=== PATIENT | male | born 1990 | race Caucasian/White ===

== ENCOUNTER 2018-07-11 16:05 | Emergency (ER) | payer BC ==
[~2018-07-11] VITALS: Ht 172.7 cm; Wt 86.2 kg
[2018-07-11 16:59] LABS: BILIRUBIN,URINE NEGATIVE (NEGATIVE); CLARITY,URINE CLEAR (CLEAR); COLOR,URINE YELLOW (YELLOW); KETONES,URINE NEGATIVE (NEGATIVE); LEUKOCYTE ESTERASE ,URINE NEGATIVE (NEGATIVE); NITRITE,URINE NEGATIVE (NEGATIVE); PROTEIN,URINE DIPSTICK NEGATIVE (NEGATIVE); URINE UROBILINOGEN 0.2 mg/dL (0.2 - 1)
[2018-07-11 17:05] LABS: BASOPHILS # (AUTO) 0.1 (0.0-0.1); BASOPHILS % 0.9 % (0.0-1.0); EOSINOPHILS # (AUTO) 0.3 (0.0-0.4); EOSINOPHILS % 3.2 % (0.0-6.0); HEMATOCRIT 45.8 % (38.2-49.6); HEMOGLOBIN 15.7 g/dL (14.0-18.0); LYMPHOCYTES # (AUTO) 2.7 (1.0-3.2); LYMPHOCYTES % 25.9 % (18.0-39.1); MEAN CORPUSCULAR HEMOGLOBIN 29.5 pg (28-32); MEAN CORPUSCULAR HGB CONC 34.3 g/dL (31-35); MEAN CORPUSCULAR VOLUME 86.1 fL (81-99); MONOCYTES # (AUTO) 0.6 (0.2-0.8); NEUTROPHILS # (AUTO) 6.6 (2.1-6.9); NEUTROPHILS % 63.6 % (38.7-80.0); PLATELET COUNT 291 x10e3/uL (140-360); RED BLOOD COUNT 5.32 x10e6/uL (4.3-5.7); RED CELL DISTRIBUTION WIDTH 12.8 % (11.7-14.4)
[2018-07-11 17:06] LABS: BACTERIA,URINE RARE /HPF; EPITHELIAL CELLS,URINE RARE /LPF; RBC,URINE 0-5 /HPF (0-5); WBC,URINE (MAN) 0-5 /HPF (0-5)
[2018-07-11 17:09] LABS: INR 0.93; PROTHROMBIN TIME 13.3 seconds (11.9-14.5)
[2018-07-11 17:10] LABS: PARTIAL THROMBOPLASTIN TIME 27.2 seconds (23.8-35.5)
[2018-07-11 17:18] LABS: ALANINE AMINOTRANSFERASE 25 IU/L (0-55); ALBUMIN 3.8 g/dL (3.5-5.0); ALBUMIN/GLOBULIN RATIO 1.2 (0.8-2.0); ALKALINE PHOSPHATASE 114 IU/L (40-150); AMYLASE 72 U/L (25-125); ANION GAP 8.2 mmol/L (8-16); BLOOD UREA NITROGEN 11 mg/dL (7-26); BUN/CREATININE RATIO 8 (6-25); CALCIUM 9.7 mg/dL (8.4-10.2); CARBON DIOXIDE 32 mmol/L (22-29); CHLORIDE 102 mmol/L (98-107); CREATINE KINASE 138 IU/L (30-200); EST GLOMERULAR FILTRATION RATE > 60 ML/MIN (60-); GLUCOSE 83 mg/dL (74-118); LIPASE 33 U/L (8-78); POTASSIUM 4.2 mmol/L (3.5-5.1); SODIUM 138 mmol/L (136-145)
[2018-07-11] MEDS ORDERED: ONDANSETRON HCL INJ 2 MG/ML VIAL IV STA (17:33)
[2018-07-11] MEDS ORDERED: KETOROLAC TROMETHAMINE 30 MG/ML VIAL IV STA (17:42)
--- NOTE | 2018-07-11 19:25 | Diagnostic Imaging Report ---
EXAMINATION: CHEST 2 VIEWS INDICATION: Chest pain COMPARISON: None FINDINGS: TUBES and LINES: None. LUNGS: Lungs are well inflated. Lungs are clear. There is no evidence of pneumonia or pulmonary edema. PLEURA: No pleural effusion or pneumothorax. HEART AND MEDIASTINUM: The cardiomediastinal silhouette is unremarkable. BONES AND SOFT TISSUES: No acute osseous lesion. Soft tissues are unremarkable. UPPER ABDOMEN: No free air under the diaphragm. IMPRESSION: No acute radiographic abnormality. Signed by: Dr. Caity Vazquez MD on 07/11/2018 7:22 PM
[2018-07-11] MEDS ORDERED: ULTRAM 50MG50 MG PO (19:49)
[2018-07-11 20:17] VITALS: BP 135/83
--- OUTSIDE RECORDS SUMMARY | 2018-07-20 11:49 | XMS REPORT | Clinical Summary ---
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 Disp. Refills Start End Date Status Date aspirin (ECOTRIN) 81 MG Take 81 mg by mouth Active enteric coated tablet daily. docusate sodium (COLACE) Take 100 mg by mouth 2 Active 100 MG capsule (two) times a day. nystatin (MYCOSTATIN) Take 500,000 Units by Active 100,000 unit/mL mouth 3 (three) times a suspension day. Swish in mouth pravastatin (PRAVACHOL) Take 40 mg by mouth Active 40 MG tablet nightly. acetaminophen 325 mg Take 650 mg by mouth Active capsule every 4 (four) hours as needed. bisacodyl (DULCOLAX) 5 mg Take 10 mg by mouth daily Active EC tablet as needed for constipation. lactulose 10 gram/15 mL Take 30 g by mouth 2 Active (15 mL) solution (two) times a day as needed. HYDROcodone-acetaminophen Take 1 tablet by mouth Active (NORCO) 5-325 mg per every 6 (six) hours as tablet needed for moderate pain. clindamycin (CLEOCIN) 600 Infuse 600 mg into a 01/27/20 Discontin mg/4 mL solution venous catheter every 8 18 ued (eight) hours. valACYclovir (VALTREX) Take 1 tablet (1,000 mg 6 tablet 0 01/27/20 01/30/20 1000 MG tablet total) by mouth 2 (two) 18 18 times a day for 3 days. fluconazole (DIFLUCAN) Take 1 tablet (200 mg 7 tablet 0 01/27/20 02/03/20 200 MG tablet total) by mouth daily for 18 18 7 days. amoxicillin-pot Take 1 tablet by mouth 2 14 tablet 0 01/27/20 02/03/20 clavulanate (AUGMENTIN) (two) times a day for 7 18 18 875-125 mg per tablet days. Active Problems Problem Noted Date Thrush 01/25/2018 Immunocompromised (HCC) 01/25/2018 Sepsis (HCC) 01/24/2018 Oral lesion 01/23/2018 PFO (patent foramen ovale) 01/22/2018 CVA (cerebral vascular accident) (HCC) 01/22/2018 Patent foramen ovale with right to left shunt 01/22/2018 Encounters Date Type Specialty Care Team Description 01/22/2018 Procedure Pass Cardiovascular 01/22/2018 Procedure Pass Cardiovascular 01/22/2018 Procedure Pass Cardiovascular 01/21/2018 [facility] Cardiovascular Cristobal Burns MD Oral lesion (Primary Dx) - Encounter 01/26/2018 after 07/10/2017 Social History Tobacco Use Types Packs/Day Years Used Date Former Smoker Cigarettes 1.5 10 Quit: 01/15/2018 Smokeless Tobacco: Never Used Tobacco Cessation: Counseling Given: Yes Alcohol Use Drinks/Week oz/Week Comments No Sex Assigned at Date Recorded Not on file Last Filed Vital Signs Vital Sign Reading Time Taken Blood Pressure 113/74 01/26/2018 11:26 AM CDT Pulse 60 01/26/2018 11:26 AM CDT Temperature 36.2 C (97.2 F) 01/26/2018 11:26 AM CDT Respiratory Rate 20 01/26/2018 11:26 AM CDT Oxygen Saturation 98% 01/26/2018 11:26 AM CDT Inhaled Oxygen - - Concentration Weight 91.3 kg (201 lb 3 oz) 01/26/2018 5:41 AM CDT Height 172.7 cm (5' 8") 01/25/2018 10:34 AM CDT Body Mass Index 30.59 01/26/2018 5:41 AM CDT Plan of Treatment Health Maintenance Due Date Last Done Comments INFLUENZA VACCINE 05/05/2018 Procedures Procedure Name Priority Date/Time Associated Diagnosis Comments HC COMPLETE BLD COUNT Routine 01/26/2018 Results for this W/AUTO DIFF 5:40 AM CDT procedure are in the results section. ZZESTIMATED GFR Routine 01/26/2018 Results for this 4:00 AM CDT procedure are in the results section. COMPREHENSIVE METABOLIC Routine 01/26/2018 Results for this PANEL 4:00 AM CDT procedure are in the results section. ZZESTIMATED GFR Routine 01/25/2018 Results for this 5:15 AM CDT procedure are in the results section. COMPREHENSIVE METABOLIC Routine 01/25/2018 Results for this PANEL 5:15 AM CDT procedure are in the results section. HC COMPLETE BLD COUNT Routine 01/25/2018 Results for this W/AUTO DIFF 5:15 AM CDT procedure are in the results section. SYPHILIS TREPONEMAL IGG Routine 01/24/2018 Results for this 9:05 PM CDT procedure are in the results section. CYTOMEGALOVIRUS BY PCR STAT 01/24/2018 Results for this 9:05 PM CDT procedure are in the results section. CT MAXILLOFACIAL W Routine 01/24/2018 Results for this CONTRAST 1:18 PM CDT procedure are in the results section. HERPES SIMPLEX VIRUS BY Routine 01/24/2018 Results for this PCR 9:57 AM CDT procedure are in the results section. ENTEROVIRUS BY PCR Routine 01/24/2018 Results for this 5:42 AM CDT procedure are in the results section. HC COMPLETE BLD COUNT Routine 01/24/2018 Results for this W/AUTO DIFF 5:20 AM CDT procedure are in the results section. ECHOVIRUS ANTIBODIES Routine 01/24/2018 Results for this 5:20 AM CDT procedure are in the results section. COXSACKIE A SEROTYPE 9 Routine 01/24/2018 Results for this TITER 5:20 AM CDT procedure are in the results section. ZZESTIMATED GFR Routine 01/24/2018 Results for this 4:00 AM CDT procedure are in the results section. BASIC METABOLIC PANEL Routine 01/24/2018 Results for this 4:00 AM CDT procedure are in the results section. ECG 12-LEAD STAT 01/23/2018 Results for this 3:29 PM CDT procedure are in the results section. HIV QUANTITATIVE BY PCR Routine 01/23/2018 Results for this 12:30 PM CDT procedure are in the results section. LACTIC ACID LEVEL Timed 01/23/2018 Results for this 12:00 PM CDT procedure are in the results section. ECHOCARDIOGRAM 2D Routine 01/23/2018 Results for this COMPLETE W MMODE SPECTRAL 10:36 AM CDT procedure are in the COLOR DOPPLER (52018) results section. VARICELLA ZOSTER VIRUS Routine 01/23/2018 Results for this AB, IGM 10:28 AM CDT procedure are in the results section. HSV TYPE 1/2 COMBINED AB, Routine 01/23/2018 Results for this IGM 7:06 AM CDT procedure are in the results section. RESPIRATORY PATHOGEN Routine 01/23/2018 Results for this PANEL 5:00 AM CDT procedure are in the results section. ZZESTIMATED GFR Routine 01/23/2018 Results for this 4:55 AM CDT procedure are in the results section. BASIC METABOLIC PANEL Routine 01/23/2018 Results for this 4:55 AM CDT procedure are in the results section. HC COMPLETE BLD COUNT Routine 01/23/2018 Results for this W/AUTO DIFF 4:55 AM CDT procedure are in the results section. LACTIC ACID LEVEL Routine 01/23/2018 Results for this 4:55 AM CDT procedure are in the results section. ANIYAH-BEDOYA VIRUS Routine 01/23/2018 Results for this ANTIBODY TEST 4:55 AM CDT procedure are in the results section. CYTOMEGALOVIRUS AB, IGM Routine 01/23/2018 Results for this 4:55 AM CDT procedure are in the results section. HIV 1, 2 ANTIBODY Routine 01/23/2018 Results for this 4:55 AM CDT procedure are in the results section. MRI BRAIN WO CONTRAST Routine 01/22/2018 Results for this 3:22 PM CDT procedure are in the results section. MRA HEAD WO CONTRAST Routine 01/22/2018 Results for this 3:06 PM CDT procedure are in the results section. MRA NECK WO CONTRAST Routine 01/22/2018 Results for this 2:57 PM CDT procedure are in the results section. XR PANOREX Routine 01/22/2018 Results for this 1:37 PM CDT procedure are in the results section. BETA-2 GLYCOPROTEIN 1 Routine 01/22/2018 Results for this ANTIBODY, IGG AND IGM 11:45 AM CDT procedure are in the results section. CARDIOLIPIN ANTIBODIES Routine 01/22/2018 Results for this 11:45 AM CDT procedure are in the results section. LUPUS ANTICOAGULANT PANEL Routine 01/22/2018 Results for this 11:45 AM CDT procedure are in the results section. FUNCTIONAL PROTEIN S Routine 01/22/2018 Results for this 11:45 AM CDT procedure are in the results section. FUNCTIONAL PROTEIN C Routine 01/22/2018 Results for this 11:45 AM CDT procedure are in the results section. ANTITHROMBIN III LEVEL Routine 01/22/2018 Results for this 11:45 AM CDT procedure are in the results section. C-REACTIVE PROTEIN Routine 01/22/2018 Results for this 11:45 AM CDT procedure are in the results section. FACTOR VIII ASSAY Routine 01/22/2018 Results for this 11:45 AM CDT procedure are in the results section. PROTHROMBIN MUTATION, Routine 01/22/2018 Results for this FACTOR II, BY PCR 11:45 AM CDT procedure are in the results section. FACTOR V LEIDEN BY PCR Routine 01/22/2018 Results for this 11:45 AM CDT procedure are in the results section. ZZESTIMATED GFR Routine 01/21/2018 Results for this 10:00 PM CDT procedure are in the results section. PROTHROMBIN TIME WITH INR Routine 01/21/2018 Results for this 10:00 PM CDT procedure are in the results section. PARTIAL THROMBOPLASTIN Routine 01/21/2018 Results for this TIME (PTT) 10:00 PM CDT procedure are in the results section. COMPREHENSIVE METABOLIC Routine 01/21/2018 Results for this PANEL 10:00 PM CDT procedure are in the results section. HC COMPLETE BLD COUNT Routine 01/21/2018 Results for this W/AUTO DIFF 10:00 PM CDT procedure are in the results section. XR CHEST 1 VW PORTABLE Routine 01/21/2018 Results for this 9:58 PM CDT procedure are in the results section. BLOOD CULTURE, AEROBIC & Routine 01/21/2018 Results for this ANAEROBIC 9:45 PM CDT procedure are in the results section. BLOOD CULTURE, AEROBIC & Routine 01/21/2018 Results for this ANAEROBIC 9:45 PM CDT procedure are in the results section. URINALYSIS, AUTOMATED Routine 01/21/2018 Results for this WITH MICROSCOPY 9:15 PM CDT procedure are in the results section. after 07/10/2017 Results * CBC with platelet and differential (01/26/2018 5:40 AM) Only the most recent of 5 results within the time period is included. WBC 9.34 4.50 - 11.00 k/uL [facility] DEPARTMENT OF PATHOLOGY AND GENOMIC MEDICINE RBC 4.94 4.40 - 6.00 m/uL [facility] DEPARTMENT OF PATHOLOGY AND GENOMIC MEDICINE HGB 14.8 14.0 - 18.0 g/dL [facility] DEPARTMENT OF PATHOLOGY AND GENOMIC MEDICINE HCT 42.3 41.0 - 51.0 % [facility] DEPARTMENT OF PATHOLOGY AND GENOMIC MEDICINE MCV 85.6 82.0 - 100.0 fL [facility] DEPARTMENT OF PATHOLOGY AND GENOMIC MEDICINE MCH 30.0 27.0 - 34.0 pg [facility] DEPARTMENT OF PATHOLOGY AND GENOMIC MEDICINE MCHC 35.0 31.0 - 37.0 g/dL [facility] DEPARTMENT OF PATHOLOGY AND GENOMIC MEDICINE RDW - SD 37.4 37.0 - 55.0 fL [facility] DEPARTMENT OF PATHOLOGY AND GENOMIC MEDICINE MPV 9.4 8.8 - 13.2 fL [facility] DEPARTMENT OF PATHOLOGY AND GENOMIC MEDICINE Platelet count 270 150 - 400 k/uL [facility] DEPARTMENT OF PATHOLOGY AND GENOMIC MEDICINE Nucleated RBC 0.00 /100 WBC [facility] DEPARTMENT OF PATHOLOGY AND GENOMIC MEDICINE Neutrophils 54.5 39.0 - 69.0 % [facility] DEPARTMENT OF PATHOLOGY AND GENOMIC MEDICINE Lymphocytes 30.9 25.0 - 45.0 % [facility] DEPARTMENT OF PATHOLOGY AND GENOMIC MEDICINE Monocytes 7.8 0.0 - 10.0 % [facility] DEPARTMENT OF PATHOLOGY AND GENOMIC MEDICINE Eosinophils 5.4 (H) 0.0 - 5.0 % [facility] DEPARTMENT OF PATHOLOGY AND GENOMIC MEDICINE Basophils 0.9 0.0 - 1.0 % [facility] DEPARTMENT OF PATHOLOGY AND GENOMIC MEDICINE Immature granulocytes 0.5Comment: "Immature 0.0 - 1.0 % [facility] DEPARTMENT OF granulocytes" (promyelocytes, PATHOLOGY AND myelocytes, metamyelocytes) GENOMIC MEDICINE Specimen Blood Performing Organization Address City/State/[facility] Phone Number [facility] DEPARTMENT OF [address] [place] [address] PATHOLOGY AND GENOMIC MEDICINE * Estimated GFR (01/26/2018 4:00 AM) Only the most recent of 5 results within the time period is included. GFR Non Af Amer 80 mL/min/1.73 m2 [facility] DEPARTMENT OF PATHOLOGY AND GENOMIC MEDICINE GFR Af Amer >90 mL/min/1.73 m2 [facility] DEPARTMENT OF Comment: PATHOLOGY AND Chronic kidney disease: <60 GENOMIC MEDICINE mL/min/1.73m2 Kidney failure: <15 mL/min/1.73m2 The estimated GFR is calculated from the IDMS-traceable Modification of Diet in Renal Disease Equation. The accuracy of the calculation is poor when the creatinine is normal. Calculated values >90 mL/min/1.73m2 are not reported. This equation has not been validated in children (<18 years), women, the elderly (>70 years), or ethnic groups other than Caucasians and Americans. Specimen Plasma specimen Performing Organization Address City/State/Zipcode Phone Number [address] [address] PATHOLOGY AND GENOMIC MEDICINE * Comprehensive metabolic panel (01/26/2018 4:00 AM) Only the most recent of 3 results within the time period is included. Sodium 136 135 - 148 mEq/L [facility] DEPARTMENT OF PATHOLOGY AND GENOMIC MEDICINE Potassium 4.2 3.5 - 5.0 mEq/L [facility] DEPARTMENT OF PATHOLOGY AND GENOMIC MEDICINE Chloride 97 (L) 98 - 112 mEq/L [facility] DEPARTMENT OF PATHOLOGY AND GENOMIC MEDICINE CO2 27 24 - 31 mEq/L [facility] DEPARTMENT OF PATHOLOGY AND GENOMIC MEDICINE Anion gap 12 7 - 15 mEq/L [facility] DEPARTMENT OF Comment: PATHOLOGY AND Starting from January GENOMIC MEDICINE , anion gap calculation no longer incorporates potassium. Please note the change. BUN 10 6 - 20 mg/dL [facility] DEPARTMENT OF PATHOLOGY AND GENOMIC MEDICINE Creatinine 1.1 0.7 - 1.2 mg/dL [facility] DEPARTMENT OF PATHOLOGY AND GENOMIC MEDICINE Glucose 94 65 - 99 mg/dL [facility] DEPARTMENT OF PATHOLOGY AND GENOMIC MEDICINE Calcium 9.6 8.3 - 10.2 mg/dL [facility] DEPARTMENT OF PATHOLOGY AND GENOMIC MEDICINE Protein 7.5 6.3 - 8.3 g/dL [facility] DEPARTMENT OF Comment: PATHOLOGY AND [facility] GENOMIC MEDICINE 4.6-7.0 g/dL 1 week 4.4-7.6 g/dL 7 months-1year 5.1-7.3 g/dL 1-2 years5.6-7 .5 g/dL >3 years6.0-8 .0 g/dL 18-150 6.3-8.3 g/dL Albumin 3.2 (L) 3.5 - 5.0 g/dL [facility] DEPARTMENT OF PATHOLOGY AND GENOMIC MEDICINE A/G ratio 0.7 0.7 - 3.8 [facility] DEPARTMENT OF PATHOLOGY AND GENOMIC MEDICINE Alkaline phosphatase 109 40 - 129 U/L [facility] DEPARTMENT OF PATHOLOGY AND GENOMIC MEDICINE AST 50 10 - 50 U/L [facility] DEPARTMENT OF PATHOLOGY AND GENOMIC MEDICINE ALT 56 (H) 5 - 50 U/L [facility] DEPARTMENT OF PATHOLOGY AND GENOMIC MEDICINE Total bilirubin 0.4 0.0 - 1.2 mg/dL [facility] DEPARTMENT OF PATHOLOGY AND GENOMIC MEDICINE Specimen Plasma specimen Performing Organization Address City/State/Zipcode Phone Number [facility] [address] [place] [address] PATHOLOGY AND GENOMIC MEDICINE * Syphilis treponemal IgG (01/24/2018 9:05 PM) Syphilis treponemal IgG Non-reactiveComment: Non-reactive [facility] DEPARTMENT OF Non-reactive: No serological PATHOLOGY AND evidence of Syphilis infection GENOMIC MEDICINE Specimen Serum Performing Organization Address City/[facility]/Zipcode Phone Number [facility] DEPARTMENT OF [address] [place] [phone] PATHOLOGY AND GENOMIC MEDICINE * Cytomegalovirus by PCR (01/24/2018 9:05 PM) Cytomegalovirus by PCR Not-Detected Not-Detected IU/mL [facility] DEPARTMENT OF PATHOLOGY AND GENOMIC MEDICINE Cytomegalovirus by PCR See link below for PDF Lab [facility] DEPARTMENT OF ReportComment: Case Number: PATHOLOGY AND [id number] GENOMIC MEDICINE Performing Organization Address City/[facility]/Zipcode Phone Number [facility] DEPARTMENT OF [address] [place] [phone] PATHOLOGY AND GENOMIC MEDICINE * CT Maxillofacial W Contrast (01/24/2018 1:18 PM) Narrative Performed At EXAMINATION:CT MAXILLOFACIAL W CONTRAST RADIANT CLINICAL HISTORY:R o dental abscess COMPARISON:None. FINDINGS: Axial images were obtained after intravenous contrast infusion with sagittal and coronal image reconstructions. CT scans are performed using radiation dose reduction techniques. Technical factors are evaluated and adjusted to ensure appropriate moderation of exposure. Automated dose management technology is applied to adjust radiation exposure while achieving a highly diagnostic quality image.. There is periapical bone resorption surrounding the left mandibular first molar consistent with periapical inflammatory changes with cystic bone resorption. There is no definite soft tissue abscess. There is reactive left submandibular lymphadenopathy. There is no extension into the floor of the mouth and there is no evidence of airway impingement. IMPRESSION: Periapical cystic inflammatory changes surrounding the root canals of the left first mandibular molar without soft tissue abscess. Reactive/inflammatory left submandibular lymphadenopathy. [facility]-[id number] Procedure Note Interface, Radiology Results Incoming - 01/24/2018 1:24 PM CDT EXAMINATION: CT MAXILLOFACIAL W CONTRAST CLINICAL HISTORY: R o dental abscess COMPARISON: None. FINDINGS: Axial images were obtained after intravenous contrast infusion with sagittal and coronal image reconstructions. CT scans are performed using radiation dose reduction techniques. Technical factors are evaluated and adjusted to ensure appropriate moderation of exposure. Automated dose management technology is applied to adjust radiation exposure while achieving a highly diagnostic quality image.. There is periapical bone resorption surrounding the left mandibular first molar consistent with periapical inflammatory changes with cystic bone resorption. There is no definite soft tissue abscess. There is reactive left submandibular lymphadenopathy. There is no extension into the floor of the mouth and there is no evidence of airway impingement. IMPRESSION: Periapical cystic inflammatory changes surrounding the root canals of the left first mandibular molar without soft tissue abscess. Reactive/inflammatory left submandibular lymphadenopathy. [facility]-[id number] Performing Organization Address City/[facility]/[place] [address] * Herpes simplex virus by PCR (01/24/2018 9:57 AM) Herpes virus, PCR Not-Detected Not-Detected [facility] DEPARTMENT OF PATHOLOGY AND GENOMIC MEDICINE Herpes virus, PCR See link below for PDF Lab [facility] DEPARTMENT OF ReportComment: Case Number: PATHOLOGY AND [id number] GENOMIC MEDICINE Performing Organization Address [facility] Phone Number [address] [address] PATHOLOGY AND GENOMIC MEDICINE * Enterovirus by PCR (01/24/2018 5:42 AM) Enterovirus PCR Not-Detected Not-Detected [facility] DEPARTMENT OF PATHOLOGY AND GENOMIC MEDICINE Enterovirus PCR See link below for PDF Lab [facility] DEPARTMENT OF ReportComment: Case Number: PATHOLOGY AND [id number] GENOMIC MEDICINE Performing Organization Address [facility] Phone Number [facility] DEPARTMENT [address] [address] PATHOLOGY AND GENOMIC MEDICINE * Echovirus antibodies (01/24/2018 5:20 AM) Echovirus Ab type 6 <1:10 <1:10 [facility] Echovirus Ab type 7 1:320 (H) <1:10 [facility] Echovirus Ab type 9 1:10 <1:10 [facility] Echovirus Ab type 11 1:20 <1:10 [facility] Echovirus Ab type 30 1:40 <1:10 [facility] Comment: INTERPRETIVE INFORMATION: Echovirus Antibodies Single positive antibody titers of greater than or equal to 1:80 may indicate past or current infection. Sero- conversion or an increase in titers between acute and convalescent sera of at least fourfold is considered strong evidence of current or recent infection. Performed by [employer], [address] [place] [address],[place] [id number] [email or web address], Santi Conti MD - Lab. Director Specimen Serum Performing Organization Address City/[facility] Mexicocode Phone Number [facility] [address] [place] [address] * Coxsackie A serotype 9 titer (01/24/2018 5:20 AM) Coxsackie A sero 9 1:16 (H) <1:8 [facility] Comment: INTERPRETIVE INFORMATION: Coxsackie A Serotype 9 Titer Single positive antibody titers of greater than 1:32 may indicate past or current infection. Seroconversion or an increase in titers between acute and convalescent sera of at least fourfold is considered strong evidence of current or recent infection. Performed by [employer], [address] [id number] [email or web address], Santi Conti MD - Lab. Director Specimen Serum Performing Organization Address [facility] Phone Number [facility] [address] [place] [address] * Basic metabolic panel (01/24/2018 4:00 AM) Only the most recent of 2 results within the time period is included. Sodium 133 (L) 135 - 148 mEq/L [facility] DEPARTMENT OF PATHOLOGY AND GENOMIC MEDICINE Potassium 4.5 3.5 - 5.0 mEq/L [facility] DEPARTMENT OF PATHOLOGY AND GENOMIC MEDICINE Chloride 96 (L) 98 - 112 mEq/L [facility] DEPARTMENT OF PATHOLOGY AND GENOMIC MEDICINE CO2 25 24 - 31 mEq/L [facility] DEPARTMENT OF PATHOLOGY AND GENOMIC MEDICINE Anion gap 12 7 - 15 mEq/L [facility] DEPARTMENT OF Comment: PATHOLOGY AND Starting from January [facility] , anion gap calculation no longer incorporates potassium. Please note the change. BUN 10 6 - 20 mg/dL [facility] DEPARTMENT OF PATHOLOGY AND GENOMIC MEDICINE Creatinine 1.4 (H) 0.7 - 1.2 mg/dL [facility] DEPARTMENT OF PATHOLOGY AND GENOMIC MEDICINE Glucose 87 65 - 99 mg/dL [facility] DEPARTMENT OF PATHOLOGY AND GENOMIC MEDICINE Calcium 8.9 8.3 - 10.2 mg/dL [facility] DEPARTMENT OF PATHOLOGY AND GENOMIC MEDICINE Specimen Plasma specimen Performing Organization Address City/[facility]/Zipcode Phone Number [address] [address] PATHOLOGY AND GENOMIC MEDICINE * ECG 12 lead (01/23/2018 3:29 PM) Ventricular rate 90 [facility] MUSE Atrial rate 90 [facility] MUSE [place] interval 132 [facility] MUSE QRSD interval 90 [facility] MUSE QT interval 330 [facility] MUSE QTC interval 403 [facility] MUSE P axis 1 29 [facility] MUSE QRS axis 1 -5 [facility] MUSE T wave axis 20 [facility] MUSE EKG impression Normal sinus rhythm-Normal [facility] MUSE ECG-No previous ECGs available- Performing Organization Address [facility] Phone Number [facility] MUSE [address] [place] [address] * HIV quantitative by PCR (01/23/2018 12:30 PM) HIV quantitative, PCR Not-Detected Not-Detected copies/mL [facility] DEPARTMENT OF PATHOLOGY AND GENOMIC MEDICINE HIV quantitative, PCR See link below for PDF Lab [facility] DEPARTMENT OF ReportComment: Case Number: PATHOLOGY AND [id number] GENOMIC MEDICINE Specimen Blood Performing Organization Address [facility] Phone Number [facility] DEPARTMENT OF [address] [place] [address] PATHOLOGY AND GENOMIC MEDICINE * Lactic acid level (01/23/2018 12:00 PM) Only the most recent of 2 results within the time period is included. Lactic acid 1.4 0.5 - 2.2 mmol/L [facility] DEPARTMENT OF PATHOLOGY AND GENOMIC MEDICINE Specimen Blood Performing Organization Address [facility] Phone Number [facility] DEPARTMENT OF [address] [place] [address] PATHOLOGY AND GENOMIC MEDICINE * Echocardiogram complete w contrast and 3D if needed (01/23/2018 10:36 AM) Narrative Performed At [facility] Echocardiography Report [address] [place] [address] Pat.Name:FER MONDRAGON.ID:[id number] St.Date: 01/23/2018 Refer.MD:CRISTOBAL BURNS MD Exam Time: 9:58:00 AMStudy Type:Routine Echo Height:70inWeight:205lb BSA: 2.11 m2 DOBAge:1990,27Y Sex: MALEBP:131/65 HR:107 bpm Sonogrphr: KESHA Tabares, [facility] Pat. Stat.:Inpatient Room:D906 Study Status:Final Echo Event ID:[id number] Order ID:[id number] Reason for Study:Knonw PFO, Symptoms or conditions potentialy related to suspected cardiac etiology including but not limited to chest pain, shortness of breath, palpitations, TIA, stroke, or peripheral embolic event Procedures:2D Echo, Colorflow Doppler, Strain Race:C SUMMARY: Saline study was not requested, but color doppler did notshow L to R shunting FINDINGS: LV: LV size is normal. LV EF is normal. Overall wall motion is normal.Estimated EF is 65-69% RV: RV size is normal. RV systolic function is normal. LA: LA size is normal. RA: RA size is normal. AO: Aortic root diameter is normal. MCKAYLA: No pericardial effusion. AV: No structural AV abnormalities noted. MV: No structural MV abnormalities noted. PV: No structural PV abnormalities noted. TV: No structural TV abnormalities noted. Mild tricuspid regurgitation Bennett: Normal diastolic function. Other:Estimated PA systolic pressure is 26 mmHg, assuming a mean RAPof 5 mmHg. MEASUREMENTS: 2D Parasternal [place] LVOT 2.2 cmAo An2.2 cm LVIDd4.6 cmIndex2.2 cm/m Ao Rtd 3.1 cm Index1.5 cm/m LVIDs2.4 cm LV Udvo547.5 g(122-174) LV%fs 48.4 % LVM Index 90.3 g/m2 IVSd 1.1 cmRWT0.5 LVPWd1.2 cm LA Sng Plane LA Area 17.4 cm2(8.8-23.4) LA Vol44.4 ml Index21 ml/m LA LngAx 5.6 cm RA Sng Plane RA Area 14.2 cm2(8.3-19.5) RA Vol39.9 ml Index18.9 ml/m RA LngAx 4.2 cm DOPPLER LVOT Stroke Vol LVOT 2.2 cmLVOT CO7.7 l/min LVOT TVI19.8 cmLVOT CI3.6 l/m/m2 LVOT Tm245 msecHR 102 bpm LVOT SV 75.4 ml Signed 01/23/2018 01:35 PM Sudha Roach M.D. Procedure Note Interface, Radiology Results In - 01/23/2018 1:35 PM CDT Echocardiography Report [address] [place] [address] Pat.Name: FER MONDRAGON Pat.ID: [id number] .Date: 01/23/2018 Refer.MD: CRISTOBAL BURNS MD Exam Time: 9:58:00 AM Study Type:Routine Echo Height: 70in Weight: 205lb BSA: 2.11 m2 Age: 8 1990,27Y Sex: MALE BP: 131/65 HR: 107 bpm Sonogrphr: KESHA Tabares, [facility] Pat. Stat.:Inpatient Room: [facility] Study Status:Final Echo Event ID:[id number] Order ID: [id number] Reason for Study:Knonw PFO, Symptoms or conditions potentialy related to suspected cardiac etiology including but not limited to chest pain, shortness of breath, palpitations, TIA, stroke, or peripheral embolic event Procedures:2D Echo, Colorflow Doppler, Strain Race: C SUMMARY: Saline study was not requested, but color doppler did not show L to R shunting FINDINGS: LV: LV size is normal. LV EF is normal. Overall wall motion is normal. Estimated EF is 65-69% RV: RV size is normal. RV systolic function is normal. LA: LA size is normal. RA: RA size is normal. AO: Aortic root diameter is normal. MCKAYLA: No pericardial effusion. AV: No structural AV abnormalities noted. MV: No structural MV abnormalities noted. PV: No structural PV abnormalities noted. TV: No structural TV abnormalities noted. Mild tricuspid regurgitation Bennett: Normal diastolic function. Other: Estimated PA systolic pressure is 26 mmHg, assuming a mean RAP of 5 mmHg. MEASUREMENTS: 2D Parasternal Long [place] LVOT 2.2 cm Ao An 2.2 cm LVIDd 4.6 cm Index 2.2 cm/m Ao Rtd 3.1 cm Index 1.5 cm/m LVIDs 2.4 cm LV Mass 190.5 g (122-174) LV%fs 48.4 % LVM Index 90.3 g/m2 IVSd 1.1 cm RWT 0.5 LVPWd 1.2 cm LA Sng Plane LA Area 17.4 cm2 (8.8-23.4) LA Vol 44.4 ml Index 21 ml/m LA LngAx 5.6 cm RA Sng Plane RA Area 14.2 cm2 (8.3-19.5) RA Vol 39.9 ml Index 18.9 ml/m RA LngAx 4.2 cm DOPPLER LVOT Stroke Vol LVOT 2.2 cm LVOT CO 7.7 l/min LVOT TVI 19.8 cm LVOT CI 3.6 l/m/m2 LVOT Tm 245 msec HR 102 bpm LVOT SV 75.4 ml Signed 01/23/2018 01:35 PM Sudha Roach M.D. Performing Organization Address City/[facility]/Zipcode Phone Number [facility] [address] [place] [address] * Varicella zoster virus Ab, IgM (01/23/2018 10:28 AM) VZV IgM 0.00 <=0.90 [facility] Comment: Specimen is hemolyzed. Results may be adversely affected. INTERPRETIVE INFORMATION: Varicella-Zoster Virus Antibody, IgM 0.90 ISR or less ........ Negative - No significant leve l of detectable vari angelic-zoster virus IgM antibody. 0.91-1.09 ISR ........... Equivocal - Repeat testing in 10-1 4 days may be helpful. 1.10 ISR or greater ..... Positive - Significant level of detectable varicella-zoster viru s IgM antibody. Indicative of current or recent infection. Martines miranda, low levels of IgM anti bodies may occasionally pers ist for more than 12 months post -infection or immunization. Performed by [facility], [address] [place], [place] [id number] [email or web address], Santi Conti MD - Lab. Director Specimen Serum Performing Organization Address [facility] Phone Number [facility] [address] [place] [address] * HSV type 1/2 combined Ab, IgM (01/23/2018 7:06 AM) HSV 1/2 combined Ab, IgM SEE NOTE [facility] Comment: Herpes Simplex Virus Type 1 and/or 2 Antibodies, IgM by GEOFF [facility] test code [id number] HSV 1 and/or 2 Abs, IgM by GEOFF 0.42 IV (Ref Interval: <=0.89) Specimen is hemolyzed. Results may be adversely affected. INTERPRETIVE INFORMATION: Herpes Simplex Virus Type 1 and/or 2 Antibodies, IgM by GEOFF 0.89 IV or Less .......... Not Detected 0.90 - 1.09 IV ........... Indeterminate- Repeat testing in 10-14 days may be helpful. 1.10 IV or Greater ....... Detected-IgM antibody to HSV detected, which may indicate a current or recent infection. However, low levels of IgM antibodies may occasionally persist for more than 12 months post-infection. Test performed by: [facility] [address] [place], [id number] Specimen Serum Performing Organization Address [facility] Phone Number [facility] [address] [place] [address] * Respiratory pathogen panel (01/23/2018 5:00 AM) Respiratory pathogen Negative for all pathogens [facility] DEPARTMENT OF panel tested: PATHOLOGY AND Negative for Adenovirus GENOMIC MEDICINE Negative for Coronavirus HKU1 Negative for Coronavirus NL63 Negative for Coronavirus 229E Negative for Coronavirus OC43 Negative for Human Metapneumovirus Negative for Rhinovirus/Enterovirus Negative for Influenza A Negative for Influenza A/H1 Negative for Influenza A/H3 Negative for Influenza A/H1-2009 Negative for Influenza B Negative for Parainfluenza Virus 1 Negative for Parainfluenza Virus 2 Negative for Parainfluenza Virus 3 Negative for Parainfluenza Virus 4 Negative for Respiratory Syncytial Virus Negative for Bordetella pertussis Negative for Chlamydophila pneumoniae Negative for Mycoplasma pneumoniae This real-time PCR assay detects the presence of nucleic acids (RNA or DNA) for the respiratory pathogens listed. A result of "Not-detected" does not exclude the possibility of the presence of one or more pathogens at concentrations less than the detectable limits of the assay. Comment: Specimen Information Specimen Source: Nares Specimen Site: Right Specimen Nares - Right Performing Organization Address City/[facility] Phone Number [facility] DEPARTMENT OF [address] [place] [address] PATHOLOGY AND GENOMIC MEDICINE * Aniyah-Bedoya virus antibody test (01/23/2018 4:55 AM) EBV Ab to viral capsid POSITIVE (A) Negative [facility] DEPARTMENT OF Ag, IgG PATHOLOGY AND GENOMIC MEDICINE EBV Ab to viral capsid Negative Negative [facility] DEPARTMENT OF Ag, IgM PATHOLOGY AND GENOMIC MEDICINE EBV Ab to nuclear Ag, IgG POSITIVE (A) Negative [facility] DEPARTMENT OF PATHOLOGY AND GENOMIC MEDICINE EBV Ab to early (D) Ag, Negative Negative [facility] DEPARTMENT OF IgG Comment: PATHOLOGY AND Interpretive Information: GENOMIC MEDICINE Infection StatusVCA_IgG No Previous_ Acute + Recent + Past + Reactivation + Infection StatusVCA_IgM No Previous_ Acute + Recent +/- Past - Reactivation +/- Infection Status EA No Previous_ Acute +/- Recent +/- Past - Reactivation + Infection Status EBNA No Previous_ Acute - Recent +/- Past + Reactivation + Specimen Serum Performing Organization Address City/[facility] Phone Number [facility] DEPARTMENT OF [address] [place] [address] PATHOLOGY AND [facility] * Cytomegalovirus Ab, IgM (01/23/2018 4:55 AM) Cytomegalovirus Ab, IgM NegativeComment: Negative: CMV Negative [facility] DEPARTMENT OF IgM antibodies were not PATHOLOGY AND detected. GENOMIC MEDICINE Specimen Serum Performing Organization Address [facility] Phone Number [facility] [place] [address] PATHOLOGY AND [facility] * HIV 1, 2 antibody (01/23/2018 4:55 AM) HIV 1, 2 antibody Non-reactive Non-reactive [facility] DEPARTMENT OF Comment: PATHOLOGY AND Starting from January 01 2016, GENOMIC MEDICINE 4th generation HIV screening and confirmation assays are in use at [facility], consistent with the CDC-recommended algorithm. The screening test detects antibodies to HIV-1, HIV-2 and the p24 antigen. Positive screening results will be automatically reflexed to a HIV-1/HIV-2 differentiation assay. Indeterminant HIV-1 results will be further automatically reflexed to a nucleic acid test for detection of acute infection. Western blot will no longer be performed as a confirmation test. For a quick reference guide on the testing algorithm, please refer to: http://stacks.cdc.gov/view/cdc /95400. Specimen Blood Performing Organization Address [facility] Phone Number [facility] DEPARTMENT OF [address] [place] [address] PATHOLOGY AND [facility] * MRI Brain Wo Contrast (01/22/2018 3:22 PM) Narrative Performed At EXAMINATION:[facility]IN [facility] CLINICAL HISTORY:STROKE COMPARISON:None. TECHNIQUE: Standard noncontrast brain MRI. FINDINGS: The brain is normal in signal and configuration with no evidence of acute infarction, hemorrhage, mass lesion, or midline shift. Ventricles, sulci, and cisterns are normal in size and configuration. There is no extra-axial fluid collection. Flow voids of the major intracranial vessels are intact. Visualized paranasal sinuses and mastoid air cells are clear. Bones, orbits, and soft tissues are unremarkable. IMPRESSION: Unremarkable brain MRI with no evidence of acute infarction, hemorrhage, or mass lesion. [facility]-[id number] Procedure Note [facility], Radiology Results Incoming - 01/22/2018 4:12 PM CDT EXAMINATION: MRI BRAIN WO CONTRAST CLINICAL HISTORY: STROKE COMPARISON: None. TECHNIQUE: Standard noncontrast brain MRI. FINDINGS: The brain is normal in signal and configuration with no evidence of acute infarction, hemorrhage, mass lesion, or midline shift. Ventricles, sulci, and cisterns are normal in size and configuration. There is no extra-axial fluid collection. Flow voids of the major intracranial vessels are intact. Visualized paranasal sinuses and mastoid air cells are clear. Bones, orbits, and soft tissues are unremarkable. IMPRESSION: Unremarkable brain MRI with no evidence of acute infarction, hemorrhage, or mass lesion. [facility]-[id number] Performing Organization Address City/State/Zipcode Phone Number [facility] [address] [place] [address] * MRA Head Wo Contrast (01/22/2018 3:06 PM) Narrative Performed At [facility] EXAMINATION:MRA HEAD WO CONTRAST CLINICAL HISTORY:STROKE COMPARISON:Concurrent brain MRI on 01/22/2018. TECHNIQUE: Head MRA using 3D vbuj-sa-rvjxqf technique with multiplanar MIP reconstruction were obtained. FINDINGS: There is normal flow signal with no significant stenosis or occlusion along bilateral intracranial ICAs, ACAs, and MCAs. The anterior communicating artery complex is unremarkable. There is normal flow signal with no significant stenosis or occlusion along bilateral vertebral arteries, basilar artery, cerebellar arteries, and drosophere operator. The vertebral arteries are codominant. The posterior communicating arteries are small and not well-visualized. There is no evidence of cerebral aneurysm in the proximal washoe of [place] within limits of MRA technique. IMPRESSION: Unremarkable head MRA with no significant stenosis or occlusion in the proximal washoe of [place]. [facility]-[id number] Procedure Note [facility], Radiology Results Incoming - 01/22/2018 4:14 PM CDT EXAMINATION: MRA HEAD WO CONTRAST CLINICAL HISTORY: STROKE COMPARISON: Concurrent brain MRI on 01/22/2018. TECHNIQUE: Head MRA using 3D bskl-yf-muhcek technique with multiplanar MIP reconstruction were obtained. FINDINGS: There is normal flow signal with no significant stenosis or occlusion along bilateral intracranial ICAs, ACAs, and MCAs. The anterior communicating artery complex is unremarkable. There is normal flow signal with no significant stenosis or occlusion along bilateral vertebral arteries, basilar artery, cerebellar arteries, and drosophere operator. The vertebral arteries are codominant. The posterior communicating arteries are small and not well-visualized. There is no evidence of cerebral aneurysm in the proximal washoe of [place] within limits of MRA technique. IMPRESSION: Unremarkable head MRA with no significant stenosis or occlusion in the proximal washoe of [place]. [facility]-[id number] Performing Organization Address City/State/Zipcode Phone Number [facility] [address] [place] [address] * MRA Neck Wo Contrast (01/22/2018 2:57 PM) Narrative Performed At EXAMINATION: MRA NECK WO CONTRAST [facility] CLINICAL HISTORY: STROKE COMPARISON:None TECHNIQUE: 2-D and 3-D Tbik-gs-grlvug MRA images of the cervical vessels were obtained with multiplanar and 3-D reconstructive algorithms. FINDINGS: The common carotid arteries are patent. The carotid bifurcations, internal carotid arteries and external carotid arteries are patent. There is 0% stenosis of the internal carotid arteries by NASCET criteria. The vertebral arteries are patent.The vertebral arteries are roughly codominant.There is no evidence of stenosis or dissection. IMPRESSION: Unremarkable MRA of the neck with no significant stenosis by NASCET criteria. [facility]-[id number] Procedure Note Interface, Radiology Results Incoming - 01/22/2018 4:14 PM CDT EXAMINATION: MRA NECK WO CONTRAST CLINICAL HISTORY: STROKE COMPARISON: None TECHNIQUE: 2-D and 3-D [id number]-[id number]-ogmfib MRA images of the cervical vessels were obtained with multiplanar and 3-D reconstructive algorithms. FINDINGS: The common carotid arteries are patent. The carotid bifurcations, internal carotid arteries and external carotid arteries are patent. There is 0% stenosis of the internal carotid arteries by NASCET criteria. The vertebral arteries are patent. The vertebral arteries are roughly codominant. There is no evidence of stenosis or dissection. IMPRESSION: Unremarkable MRA of the neck with no significant stenosis by NASCET criteria. [facility]-[id number] Performing Organization Address City/[facility] Phone Number [facility] [address] [place] [address] * XR Panorex (01/22/2018 1:37 PM) Narrative Performed At EXAMINATION:XR PANOREX [facility] CLINICAL HISTORY:Abscess, dental abscess and swelling COMPARISON:None. IMPRESSION: There are root canal changes involving the left mandibular first molar with small periapical lucency, cannot exclude periapical abscess. There is also questionable thin lucency in the left mandibular second and third molar regions. Recommend dedicated dental imaging for further evaluation. [facility]-[id number] Procedure Note Hm Interface, Radiology Results Incoming - 01/22/2018 1:47 PM CDT EXAMINATION: XR PANOREX CLINICAL HISTORY: Abscess, dental abscess and swelling COMPARISON: None. IMPRESSION: There are root canal changes involving the left mandibular first molar with small periapical lucency, cannot exclude periapical abscess. There is also questionable thin lucency in the left mandibular second and third molar regions. Recommend dedicated dental imaging for further evaluation. [facility]-[id number] Performing Organization Address [facility] Phone Number [facility] [address] [place] [phone] * Prothrombin mutation, factor II, by PCR (01/22/2018 11:45 AM) Prothrombin gene mutation Normal Normal [facility] DEPARTMENT OF PATHOLOGY AND GENOMIC MEDICINE Prothrombin gene mutation See link below for PDF Lab [facility] DEPARTMENT OF ReportComment: Case Number: PATHOLOGY AND [id number] GENOMIC MEDICINE Specimen Blood Performing Organization Address [facility] Phone Number [facility] DEPARTMENT OF [address] [place] [phone] PATHOLOGY AND GENOMIC MEDICINE * Beta-2 glycoprotein 1 antibody, IgG and IgM (01/22/2018 11:45 AM) Beta-2 glycoprotein 1 <9.4 0.0 - 20.0 [facility] DEPARTMENT OF antibody, IgG Comment: PATHOLOGY AND Negative=<20.0 [facility] GENOMIC MEDICINE Positive >20.0 [facility] Beta-2 glycoprotein 1 <9.4 0.0 - 20.0 [facility] DEPARTMENT OF antibody, IgM Comment: PATHOLOGY AND Negative=<20.0 [facility] GENOMIC MEDICINE Positive >20.0 [facility] Specimen Blood Performing Organization Address [facility] Phone Number [facility] DEPARTMENT OF [address] [place] [address] PATHOLOGY AND GENOMIC MEDICINE * Functional protein S (01/22/2018 11:45 AM) Functional protein S 113 74 - 160 % [facility] DEPARTMENT OF Comment: PATHOLOGY AND Functional Protein S GENOMIC MEDICINE performed.If result is decreased Total and Free Protein S Antigen will be performed. Specimen Blood Performing Organization Address City/[facility] Phone Number [facility] DEPARTMENT OF [address] [place] [address] PATHOLOGY AND GENOMIC MEDICINE * Functional protein C (01/22/2018 11:45 AM) Functional protein C 85 70 - 165 % [facility] DEPARTMENT OF PATHOLOGY AND GENOMIC MEDICINE Specimen Blood Performing Organization Address City/[facility] Phone Number [address] [address] PATHOLOGY AND GENOMIC MEDICINE * Lupus anticoagulant panel (01/22/2018 11:45 AM) Prothrombin time 14.4 12.0 - 15.0 sec [facility] DEPARTMENT OF PATHOLOGY AND GENOMIC MEDICINE INR 1.1 [facility] DEPARTMENT OF Comment: PATHOLOGY AND The International Normalized [facility] Ratio (INR) is a therapeutic monitoring tool for patients who are stable on oral anticoagulant therapy. An INR of 2.0-3.0 is suggested for deep vein thrombosis/pulmonary embolism. PTT 37.8 (H) 23.0 - 36.0 sec [facility] DEPARTMENT OF Comment: PATHOLOGY AND PTT therapeutic range for [facility] unfractionated heparin is 61.0-112.0 seconds which corresponds to Anti-Xa 0.3-0.7 U/ml. PTT lupus anticoagulant 38.0 27.0 - 38.0 sec [facility] DEPARTMENT OF Comment: PATHOLOGY AND Lupus anticoagulant (LA) panel [facility] consists of PT, PTT, PTT-LA, and DRVVT. If the PTT-LA is above the normal range, the hexagonal phospholipid will be performed. If the DRVVT is above the normal range, the DRVVC confirmatory test will be performed. A normal result for both the DRVVT and the PTT-LA means the patient is negative for lupus anticoagulant. The patient is considered positive for lupus anticoagulant if either the Ratio SCR/CONF or the hexagonal phospholipid is high (positive) on two occassions at least six weeks apart. Clinical confirmation is also required for diagnosis. DRVVT 41.6 29.0 - 46.0 sec [facility] DEPARTMENT OF PATHOLOGY AND GENOMIC MEDICINE Specimen Blood Performing Organization Address City/[facility] [facility] Phone Number [facility] [place] [address] PATHOLOGY AND GENOMIC MEDICINE * Cardiolipin antibodies (01/22/2018 11:45 AM) Cardiolipin IgG 1 0 - 14 GPL [facility] DEPARTMENT OF Comment: PATHOLOGY AND Negative=<15 GENOMIC MEDICINE GPL Indeterminate=15-20 GPL Positive=>20 GPL Cardiolipin IgM 4 0 - 12 MPL [facility] DEPARTMENT OF Comment: PATHOLOGY AND Negative=<13 GENOMIC MEDICINE MPL Indeterminate=13-20 MPL Positive=>20 MPL Specimen Blood Performing Organization Address City/[facility] Phone [facility] [place] [address] PATHOLOGY AND GENOMIC MEDICINE * Factor V leiden by PCR (01/22/2018 11:45 AM) Factor V Leiden Normal [facility] DEPARTMENT OF PATHOLOGY AND GENOMIC MEDICINE Factor V Leiden See link below for PDF Lab [facility] DEPARTMENT OF ReportComment: Case Number: PATHOLOGY AND [id number] GENOMIC MEDICINE Specimen Blood Performing Organization Address [facility] Phone Number [facility] [place] [address] PATHOLOGY AND GENOMIC MEDICINE * Antithrombin III level (01/22/2018 11:45 AM) Antithrombin III 103 80 - 130 % [facility] DEPARTMENT OF PATHOLOGY AND GENOMIC MEDICINE Specimen Blood Performing Organization Address [facility] Phone Number [facility] [place] [address] PATHOLOGY AND [facility] MEDICINE * Factor VIII assay (01/22/2018 11:45 AM) Factor VIII activity 111 60 - 150 % [facility] DEPARTMENT OF PATHOLOGY AND GENOMIC MEDICINE Specimen Blood Performing Organization Address [facility] Phone Number [facility] [place] [address] PATHOLOGY AND [facility] MEDICINE * C-reactive protein (01/22/2018 11:45 AM) CRP 4.62 (H) 0.00 - 0.50 mg/dL [facility] DEPARTMENT OF PATHOLOGY AND GENOMIC MEDICINE Specimen Plasma specimen Performing Organization Address [facility] Phone Number [facility] [place] [address] PATHOLOGY AND GENOMIC MEDICINE * Partial thromboplastin time, activated (01/21/2018 10:00 PM) PTT 34.5 23.0 - 36.0 sec [facility] DEPARTMENT OF Comment: PATHOLOGY AND PTT therapeutic range for [facility] MEDICINE unfractionated heparin is 61.0-112.0 seconds which corresponds to Anti-Xa 0.3-0.7 U/ml. Specimen Blood Performing Organization Address City/[facility]/Zipcode Phone Number [facility] DEPARTMENT OF [address] [place] [address] PATHOLOGY AND GENOMIC MEDICINE * Prothrombin time with INR (01/21/2018 10:00 PM) Prothrombin time 14.1 12.0 - 15.0 sec [facility] DEPARTMENT OF PATHOLOGY AND GENOMIC MEDICINE INR 1.1 [facility] DEPARTMENT OF Comment: PATHOLOGY AND The International Normalized GENOMIC MEDICINE Ratio (INR) is a therapeutic monitoring tool for patients who are stable on oral anticoagulant therapy. An INR of 2.0-3.0 is suggested for deep vein thrombosis/pulmonary embolism. Specimen Blood Performing Organization Address [facility] Phone Number [facility] DEPARTMENT OF [address] [place] [address] PATHOLOGY AND GENOMIC MEDICINE * XR Chest 1 Vw Portable (01/21/2018 9:58 PM) Narrative Performed At Examination:XR CHEST 1 V[facility] Clinical History:TIA Comparison: None. Technique: Single frontal view of the chest is obtained. Findings: The lungs are free of infiltrate. The heart size is normal. No pleural effusion is seen. Impression: No active cardiopulmonary disease identified. [facility]-[id number] Procedure Note Interface, Radiology Results Incoming - 01/21/2018 11:32 PM CDT Examination: XR CHEST 1 VW PORTABLE Clinical History: TIA Comparison: None. Technique: Single frontal view of the chest is obtained. Findings: The lungs are free of infiltrate. The heart size is normal. No pleural effusion is seen. Impression: No active cardiopulmonary disease identified. [facility]-[id number] Performing Organization Address City/[facility]/Zipcode Phone Number [facility] [address] [place] [address] * Blood culture, aerobic & anaerobic (01/21/2018 9:45 PM) Only the most recent of 2 results within the time period is included. Blood culture isolate No growth after 5 days of [facility] DEPARTMENT OF incubation. PATHOLOGY AND Comment: GENOMIC MEDICINE Specimen Information Specimen Source: Blood Specimen Site: Arm, left Specimen Blood - Arm, left Performing Organization Address City/State/Zipcode Phone Number [facility] DEPARTMENT OF [address] [place] [address] PATHOLOGY AND GENOMIC MEDICINE * Urinalysis, automated with microscopy (01/21/2018 9:15 PM) Color, UA My [facility] DEPARTMENT OF PATHOLOGY AND GENOMIC MEDICINE Appearance, UA Clear [facility] DEPARTMENT OF PATHOLOGY AND GENOMIC MEDICINE Specific gravity, UA 1.026 1.001 - 1.035 [facility] DEPARTMENT OF PATHOLOGY AND GENOMIC MEDICINE pH, UA 6.0 5.0 - 8.5 [facility] DEPARTMENT OF PATHOLOGY AND GENOMIC MEDICINE Protein, UA Negative Negative [facility] DEPARTMENT OF PATHOLOGY AND GENOMIC MEDICINE Glucose, UA Negative Negative [facility] DEPARTMENT OF PATHOLOGY AND GENOMIC MEDICINE Ketones, UA Negative Negative [facility] DEPARTMENT OF PATHOLOGY AND GENOMIC MEDICINE Bilirubin, UA Negative Negative [facility] DEPARTMENT OF PATHOLOGY AND GENOMIC MEDICINE Blood, UA Small (A) Negative [facility] DEPARTMENT OF PATHOLOGY AND GENOMIC MEDICINE Nitrite, UA Negative Negative [facility] DEPARTMENT OF PATHOLOGY AND GENOMIC MEDICINE Urobilinogen, UA 4.0 (A) <2.0 [facility] DEPARTMENT OF PATHOLOGY AND GENOMIC MEDICINE Leukocyte esterase, UA Negative Negative [facility] DEPARTMENT OF PATHOLOGY AND GENOMIC MEDICINE Epithelial cells, UA <1 /HPF [facility] DEPARTMENT OF PATHOLOGY AND GENOMIC MEDICINE WBC, UA 1 0 - 1 /HPF [facility] DEPARTMENT OF PATHOLOGY AND GENOMIC MEDICINE RBC, UA 3 0 - 5 /HPF [facility] DEPARTMENT OF PATHOLOGY AND GENOMIC MEDICINE Bacteria, UA Few None seen [facility] DEPARTMENT OF PATHOLOGY AND GENOMIC MEDICINE Yeast, UA None seen [facility] DEPARTMENT OF PATHOLOGY AND GENOMIC MEDICINE Yeast with pseudohyphae, None seen [facility] DEPARTMENT OF PATHOLOGY AND GENOMIC MEDICINE Specimen Urine Performing Organization Address City/[facility]/Zipcode Phone Number [address] [address] PATHOLOGY AND GENOMIC MEDICINE after 07/10/2017 Insurance Payer Benefit Subscriber ID Type Phone Address Plan / Group BCBS BCBS xxxxxxxxxxxx PPO CHOICE PPO/[place] [address]
--- OUTSIDE RECORDS SUMMARY | 2018-07-20 11:49 | XMS REPORT ---
Author [facility] Address Unknown Phone Unavailable Care Team Providers Care Byproducts Extractor Name Role Phone BLAIR, Ingrid MATA Unavailable Unavailable CLARI URBINA Unavailable Unavailable Payers Payer Name Policy Type Policy Number Effective Date Expiration Date Problems This patient has no known problems. Allergies, Adverse Reactions, Alerts Allergy Name Allergy Type Status Severity Reaction(s) Onset Date Inactive Date Treating Clinician Comments No Known Allergies DA Active U 2018-02-28 00:00:00 Medications This patient has no known medications. Results Test Description Test Time Test Comments Text Results Atomic Results Result Comments CHEST 2 VIEWS 2018-07-11 19:21:00 [place] [id number] Patient Name: SHO MONDRAGON MR #: [id number] : 1990 Age/Sex: 28/M Req #: [id number] Adm Physician: Ordered by: CAREN PELAYO PACKAGING LINE OPERATOR Report #: [id number] Location: ER Room/Bed: Procedure: [id number] DX/CHEST 2 VIEWS Exam Date: 07/11/18 Exam Time: 1822 REPORT STATUS: Signed EXAMINATION: CHEST 2 VIEWS INDICATION: Chest pain COMPARISON: None FINDINGS: TUBES and LINES: None. LUNGS: Lungs are well inflated. Lungs are clear. There is no evidence of pneumonia or pulmonary edema. PLEURA: No pleural effusion or pneumothorax. HEART AND MEDIASTINUM: The cardiomediastinal silhouette is unremarkable. BONES AND SOFT TISSUES: No acute osseous lesion. Soft tissues are unremarkable. UPPER ABDOMEN: No free air under the diaphragm. IMPRESSION: No acute radiographic abnormality. Signed by: Dr. Sun Schaefer MD on 07/11/2018 7:22 PM Dictated By: SUN SCHAEFER MD 21 Transcribed By: MING on 07/11/181921 COPY TO: CAREN PELAYO PACKAGING LINE OPERATOR XR HAND MIN 3VWS 2018-04-29 20:13:52 Procedure: XR HAND MIN 3VWSExam Date: April 29, 2018 20 00Ordering Provider: JENNA Fontanezinical Indication: hand injComparison: NoneFindings: No fracture or dislocation. Mild scattered degenerative changes. Noosseous erosion.Mild soft tissue swelling. No radiopaque foreign body.Impression: Mild soft tissue swelling.This final report was electronically signed by Dr Foster Mcallister MD 04/29/2018 8:07PMDictated By: JOANIE MCALLISTERINDate: 04/29/2018 20:13
--- OUTSIDE RECORDS SUMMARY | 2018-07-20 11:49 | XMS REPORT | Continuity of Care Document ---
Author Author [facility] Address [address] [place] [address] ;ext= Care Team Providers Care Crisis Worker Name Role Phone CLARI URBINA Admphys CLARI URBINA Attphys NONE, NONE PCP Unavailable Hospital Admission Diagnosis Code Admission Diagnosis Date [id number] Hand pain Social History Element Description Code Description Smoking Status Code System Start Date End Date Smoking Status [id number] Never smoker SNOMED-CT Problems * No data in the system Medications SNOMED CT Description [id number] Drug Treatment Unknown Allergies * No Known Allergies Results Radiology Results Order: [id number] XR HAND MIN 3VWS* Exam Completion Date:04/29/2018 19:52 Procedure: XR HAND MIN 3VWS Exam Date: April 29, 2018 20 00 Ordering Pro vider: JENNA Fontanezinical Indication: hand injComparison: NoneFindings: N o fracture or dislocation. Mild scattered degenerative changes. Noosseous erosio n.Mild soft tissue swelling. No radiopaque foreign body.Impression: Mild soft t issue swelling.This final report was electronically signed by Dr Foster Mcallister MD 04/29/2018 8:07PMDictated By: JOANIE MCALLISTERINDate: 04/29/2018 20:13 Vital Signs Vitals Value Date Body Temperature 99 F 04/29/2018 Height 68 in 04/29/2018 Weight Measured 196.21 lbs 04/29/2018 BSA (Body Surface Area) 2.99695 04/29/2018 BMI (Body Mass Index) 30 04/29/2018 Respiratory Rate 17 04/29/2018 O2% BldC Oximetry 96 04/29/2018 BP Systolic 111 mmHg 04/29/2018 BP Diastolic 83 mmHg 04/29/2018 Plan of Care * No data in the system Procedures Code Code System Procedure Name Target Site Date of Procedure XR HAND MIN 3VWS 04/29/2018 20:13 Encounters Date Code Diagnosis Status (ICD10) - [id number] CONTUSION LEFT HAND INITIAL ENC Active Immunizations * No data in the system Functional Status * No data in the system Hospital Discharge Instructions * Discharge Instructions 2* Discharge Diagnosis* left hand contusion * Important Information* Consult your physician or return to the Emergency Department immediately if worse, if not better as expected, or if any problems arise. * Follow Up Care* Yes * Important Information* Please understand that you have received care only on an emergency basis. If your condition does not improve, you should call your personal physician for follow-up care. If you do not have a physician, you may call the referred physician listed. * If you have questions about your care or these discharge instructions, you may call the Emergency Department. Please take your discharge paperwork with you to any follow-up appointments. * Follow Up Care* Patient To Schedule * Follow-Up With:* Primary Care Physician * Activity Level* As tolerated, unrestricted * Diet* Regular * Prescriptions Given Via:* N/A * Patient Teaching* Patient education provided
== END 2018-07-11 20:23 | disposition home or self-care (01) ==
LOC: ER 16:05
DX: R07.89 Other chest pain (principal); Z86.73 Personal history of transient ischemic attack (TIA), and cerebral infarction without residual deficits; F17.210 Nicotine dependence, cigarettes, uncomplicated
CPT/HCPCS: 36415; 71046; 80053; 81001; 82150; 82550; 82553; 83605; 83690; 83735; 84484; 85025; 85610; 85730; 87040; 87086; 93005; 99284; J1885; J2405

== ENCOUNTER 2018-11-30 13:55 | Observation (INO) | payer BC ==
[~2018-11-30] VITALS: Ht 172.7 cm; Wt 97.5 kg
[~2018-11-30 13:55] MED LIST: ULTRAM 50MG50 MG PO
--- OUTSIDE RECORDS SUMMARY | 2018-11-30 13:58 | XMS REPORT | Clinical Summary ---
Author Author [facility] Organization [facility] Address Unknown Phone Unavailable Care Team Providers Care Leather Tanner Name Role Phone Asked, No Pcp PCP Unavailable Allergies No Known Allergies Medications End Date Status Medication Sig Dispensed Refills Start Date Active aspirin (ECOTRIN) 81 MG Take 81 mg by 0 enteric coated tablet mouth daily. Active docusate sodium (COLACE) Take 100 mg 0 100 MG capsule by mouth 2 (two) times a day. Active nystatin (MYCOSTATIN) Take 500,000 0 100,000 unit/mL Units by suspension mouth 3 (three) times a day. Swish in mouth Active pravastatin (PRAVACHOL) Take 40 mg by 0 40 MG tablet mouth nightly. Active acetaminophen 325 mg Take 650 mg 0 capsule by mouth every 4 (four) hours as needed. Active bisacodyl (DULCOLAX) 5 mg Take 10 mg by 0 EC tablet mouth daily as needed for constipation. Active lactulose 10 gram/15 mL Take 30 g by 0 (15 mL) solution mouth 2 (two) times a day as needed. Active HYDROcodone-acetaminophen Take 1 tablet 0 (NORCO) 5-325 mg per by mouth tablet every 6 (six) hours as needed for moderate pain. 01/26/2018 Discontinued clindamycin (CLEOCIN) 600 Infuse 600 mg 0 mg/4 mL solution into a venous catheter every 8 (eight) hours. 01/29/2018 valACYclovir (VALTREX) Take 1 tablet 6 tablet 0 1000 MG tablet (1,000 mg 8 total) by mouth 2 (two) times a day for 3 days. 02/02/2018 fluconazole (DIFLUCAN) Take 1 tablet 7 tablet 0 200 MG tablet (200 mg 8 total) by mouth daily for 7 days. 02/02/2018 amoxicillin-pot Take 1 tablet 14 tablet 0 clavulanate (AUGMENTIN) by mouth 2 8 875-125 mg per tablet (two) times a day for 7 days. Active Problems Problem Noted Date Thrush 01/25/2018 Immunocompromised 01/25/2018 Sepsis 01/24/2018 Oral lesion 01/23/2018 PFO (patent foramen ovale) 01/22/2018 CVA (cerebral vascular accident) 01/22/2018 Patent foramen ovale with right to left shunt 01/22/2018 Encounters Care Team Description Date Type Specialty Jeyson Burns MD Oral lesion (Primary Dx) 01/21/2018 Hospital Cardiovascular - Encounter 01/26/2018 after 11/29/2017 Social History Date Tobacco Use Types Packs/Day Years Used Quit: 01/15/2018 Former Smoker Cigarettes 1.5 10 Smokeless Tobacco: Never Used Tobacco Cessation: Counseling Given: Yes Alcohol Use Drinks/Week oz/Week Comments No Sex Assigned at Date Recorded Not on file Industry Job Start Date Occupation Not on file Not on file Not on file Travel End Travel History Travel Start No recent travel history available. Last Filed Vital Signs Time Taken Vital Sign Reading 01/26/2018 11:26 AM CDT Blood Pressure 113/74 01/26/2018 11:26 AM CDT Pulse 60 01/26/2018 11:26 AM CDT Temperature 36.2 C (97.2 F) 01/26/2018 11:26 AM CDT Respiratory Rate 20 01/26/2018 11:26 AM CDT Oxygen Saturation 98% - Inhaled Oxygen - Concentration 01/26/2018 5:41 AM CDT Weight 91.3 kg (201 lb 3 oz) 01/25/2018 10:34 AM CDT Height 172.7 cm (5' 8") 01/26/2018 5:41 AM CDT Body Mass Index 30.59 Plan of Treatment Health Maintenance Due Date Last Done Comments INFLUENZA VACCINE 05/05/2018 Procedures Comments Procedure Name Priority Date/Time Associated Diagnosis HC COMPLETE BLD COUNT Routine 01/26/2018 W/AUTO DIFF 5:40 AM CDT ZZESTIMATED GFR Routine 01/26/2018 4:00 AM CDT COMPREHENSIVE METABOLIC Routine 01/26/2018 PANEL 4:00 AM CDT ZZESTIMATED GFR Routine 01/25/2018 5:15 AM CDT COMPREHENSIVE METABOLIC Routine 01/25/2018 PANEL 5:15 AM CDT HC COMPLETE BLD COUNT Routine 01/25/2018 W/AUTO DIFF 5:15 AM CDT SYPHILIS TREPONEMAL IGG Routine 01/24/2018 9:05 PM CDT CYTOMEGALOVIRUS BY PCR STAT 01/24/2018 9:[address] MAXILLOFACIAL W Routine 01/24/2018 CONTRAST 1:18 PM CDT HERPES SIMPLEX VIRUS BY Routine 01/24/2018 PCR 9:57 AM CDT ENTEROVIRUS BY PCR Routine 01/24/2018 5:42 AM CDT HC COMPLETE BLD COUNT Routine 01/24/2018 W/AUTO DIFF 5:20 AM CDT ECHOVIRUS ANTIBODIES Routine 01/24/2018 5:20 AM CDT COXSACKIE A SEROTYPE 9 Routine 01/24/2018 TITER 5:20 AM CDT ZZESTIMATED GFR Routine 01/24/2018 4:00 AM CDT BASIC METABOLIC PANEL Routine 01/24/2018 4:00 AM CDT ECG 12-LEAD STAT 01/23/2018 3:29 PM CDT HIV QUANTITATIVE BY PCR Routine 01/23/2018 12:30 PM CDT LACTIC ACID LEVEL Timed 01/23/2018 12:00 PM CDT ECHOCARDIOGRAM 2D Routine 01/23/2018 COMPLETE W MMODE SPECTRAL 10:36 AM CDT COLOR DOPPLER ([id number]) VARICELLA ZOSTER VIRUS Routine 01/23/2018 AB, IGM 10:28 AM CDT HSV TYPE 1/2 COMBINED AB, Routine 01/23/2018 IGM 7:06 AM CDT RESPIRATORY PATHOGEN Routine 01/23/2018 PANEL 5:00 AM CDT ZZESTIMATED GFR Routine 01/23/2018 4:55 AM CDT BASIC METABOLIC PANEL Routine 01/23/2018 4:55 AM CDT HC COMPLETE BLD COUNT Routine 01/23/2018 W/AUTO DIFF 4:55 AM CDT LACTIC ACID LEVEL Routine 01/23/2018 4:55 AM CDT ROCIO-BEDOYA VIRUS Routine 01/23/2018 ANTIBODY TEST 4:55 AM CDT CYTOMEGALOVIRUS AB, IGM Routine 01/23/2018 4:55 AM CDT HIV 1, 2 ANTIBODY Routine 01/23/2018 4:55 AM CDT MRI BRAIN WO CONTRAST Routine 01/22/2018 3:22 PM CDT MRA HEAD WO CONTRAST Routine 01/22/2018 3:06 PM CDT MRA NECK WO CONTRAST Routine 01/22/2018 2:57 PM CDT XR PANOREX Routine 01/22/2018 1:37 PM CDT BETA-2 GLYCOPROTEIN 1 Routine 01/22/2018 ANTIBODY, IGG AND IGM 11:45 AM CDT CARDIOLIPIN ANTIBODIES Routine 01/22/2018 11:45 AM CDT LUPUS ANTICOAGULANT PANEL Routine 01/22/2018 11:45 AM CDT FUNCTIONAL PROTEIN S Routine 01/22/2018 11:45 AM CDT FUNCTIONAL PROTEIN C Routine 01/22/2018 11:45 AM CDT ANTITHROMBIN III LEVEL Routine 01/22/2018 11:45 AM CDT C-REACTIVE PROTEIN Routine 01/22/2018 11:45 AM CDT FACTOR VIII ASSAY Routine 01/22/2018 11:45 AM CDT PROTHROMBIN MUTATION, Routine 01/22/2018 FACTOR II, BY PCR 11:45 AM CDT FACTOR V LEIDEN BY PCR Routine 01/22/2018 11:45 AM CDT ZZESTIMATED GFR Routine 01/21/2018 10:00 PM CDT PROTHROMBIN TIME WITH INR Routine 01/21/2018 10:00 PM CDT PARTIAL THROMBOPLASTIN Routine 01/21/2018 TIME (PTT) 10:00 PM CDT COMPREHENSIVE METABOLIC Routine 01/21/2018 PANEL 10:00 PM CDT HC COMPLETE BLD COUNT Routine 01/21/2018 W/AUTO DIFF 10:00 PM CDT XR CHEST 1 VW PORTABLE Routine 01/21/2018 9:58 PM CDT BLOOD CULTURE, AEROBIC & Routine 01/21/2018 ANAEROBIC 9:45 PM CDT BLOOD CULTURE, AEROBIC & Routine 01/21/2018 ANAEROBIC 9:45 PM CDT URINALYSIS, AUTOMATED Routine 01/21/2018 WITH MICROSCOPY 9:15 PM CDT after 11/29/2017 Results * CBC with platelet and differential (01/26/2018 5:40 AM CDT) Only the most recent of 5 results within the time period is included. WBC 9.34 4.50 - 11.00 k/uL [facility] DEPARTMENT OF PATHOLOGY AND GENOMIC MEDICINE RBC 4.94 4.40 - 6.00 m/uL [facility] DEPARTMENT OF PATHOLOGY AND GENOMIC MEDICINE HGB 14.8 14.0 - 18.0 g/dL [facility] DEPARTMENT OF PATHOLOGY AND GENOMIC MEDICINE HCT 42.3 41.0 - 51.0 % [facility] DEPARTMENT OF PATHOLOGY AND GENOMIC MEDICINE MCV 85.6 82.0 - 100.0 fL [facility] DEPARTMENT OF PATHOLOGY AND GENOMIC MEDICINE MCH 30.0 27.0 - 34.0 pg [facility] DEPARTMENT OF PATHOLOGY AND GENOMIC MEDICINE MCHC 35.0 31.0 - 37.0 g/dL [facility] DEPARTMENT OF PATHOLOGY AND GENOMIC MEDICINE RDW - SD 37.4 37.0 - 55.0 fL [facility] DEPARTMENT OF PATHOLOGY AND GENOMIC MEDICINE MPV 9.4 8.8 - 13.2 fL [facility] DEPARTMENT OF PATHOLOGY AND GENOMIC MEDICINE Platelet count 270 150 - 400 k/uL [facility] DEPARTMENT OF PATHOLOGY AND GENOMIC MEDICINE Nucleated RBC 0.00 /100 WBC [facility] DEPARTMENT OF PATHOLOGY AND GENOMIC MEDICINE Neutrophils 54.5 39.0 - 69.0 % [facility] DEPARTMENT OF PATHOLOGY AND GENOMIC MEDICINE Lymphocytes 30.9 25.0 - 45.0 % [facility] DEPARTMENT OF PATHOLOGY AND GENOMIC MEDICINE Monocytes 7.8 0.0 - 10.0 % [facility] DEPARTMENT OF PATHOLOGY AND GENOMIC MEDICINE Eosinophils 5.4 (H) 0.0 - 5.0 % [facility] DEPARTMENT OF PATHOLOGY AND GENOMIC MEDICINE Basophils 0.9 0.0 - 1.0 % [facility] DEPARTMENT OF PATHOLOGY AND GENOMIC MEDICINE Immature granulocytes 0.5Comment: "Immature 0.0 - 1.0 % [facility] DEPARTMENT OF granulocytes" (promyelocytes, PATHOLOGY AND myelocytes, metamyelocytes) GENOMIC MEDICINE Specimen Blood Performing Organization Address City/State/Zipcode Phone Number [facility] DEPARTMENT OF [address] [place] [phone] PATHOLOGY AND GENOMIC MEDICINE * Estimated GFR (01/26/2018 4:00 AM CDT) Only the most recent of 5 results within the time period is included. GFR Non Af Amer 80 mL/min/1.73 m2 [facility] DEPARTMENT OF PATHOLOGY AND GENOMIC MEDICINE GFR Af Amer >90 mL/min/1.73 m2 [facility] DEPARTMENT OF Comment: PATHOLOGY AND Chronic kidney [...] specimen Performing Organization Address City/State/Zipcode Phone Number [address] [address] PATHOLOGY AND GENOMIC MEDICINE * Comprehensive metabolic panel (01/26/2018 4:00 AM CDT) Only the most recent of 3 results within the time period is included. Sodium 136 135 - 148 mEq/L [facility] DEPARTMENT OF PATHOLOGY AND GENOMIC MEDICINE Potassium 4.2 3.5 - 5.0 mEq/L [facility] DEPARTMENT OF PATHOLOGY AND GENOMIC MEDICINE Chloride 97 (L) 98 - 112 mEq/L [facility] DEPARTMENT OF PATHOLOGY AND GENOMIC MEDICINE CO2 27 24 - 31 mEq/L [facility] DEPARTMENT OF PATHOLOGY AND GENOMIC MEDICINE Anion gap 12 7 - 15 mEq/L [facility] DEPARTMENT OF Comment: PATHOLOGY AND Starting from January GENOMIC MEDICINE , anion gap calculation no longer incorporates potassium. Please note the change. BUN 10 6 - 20 mg/dL [facility] DEPARTMENT OF PATHOLOGY AND GENOMIC MEDICINE Creatinine 1.1 0.7 - 1.2 mg/dL [facility] DEPARTMENT OF PATHOLOGY AND GENOMIC MEDICINE Glucose 94 65 - 99 mg/dL [facility] DEPARTMENT OF PATHOLOGY AND GENOMIC MEDICINE Calcium 9.6 8.3 - 10.2 mg/dL [facility] DEPARTMENT OF PATHOLOGY AND GENOMIC MEDICINE Protein 7.5 6.3 - 8.3 g/dL [facility] DEPARTMENT OF Comment: PATHOLOGY AND [place] GENOMIC MEDICINE 4.6-7.0 g/dL 1 week 4.4-7.6 g/dL 7 months-1year 5.1-7.3 g/dL 1-2 years5.6-7 .5 g/dL >3 years6.0-8 .0 g/dL 18-150 6.3-8.3 g/dL Albumin 3.2 (L) 3.5 - 5.0 g/dL [facility] DEPARTMENT OF PATHOLOGY AND GENOMIC MEDICINE A/G ratio 0.7 0.7 - 3.8 [facility] DEPARTMENT OF PATHOLOGY AND GENOMIC MEDICINE Alkaline phosphatase 109 40 - 129 U/L [facility] DEPARTMENT OF PATHOLOGY AND GENOMIC MEDICINE AST 50 10 - 50 U/L [facility] DEPARTMENT OF PATHOLOGY AND GENOMIC MEDICINE ALT 56 (H) 5 - 50 U/L [facility] DEPARTMENT OF PATHOLOGY AND GENOMIC MEDICINE Total bilirubin 0.4 0.0 - 1.2 mg/dL [facility] DEPARTMENT OF PATHOLOGY AND GENOMIC MEDICINE Specimen Plasma specimen Performing Organization Address City/State/Zipcode Phone Number [facility] [address] [place] [address] PATHOLOGY AND GENOMIC MEDICINE * Syphilis treponemal IgG (01/24/2018 9:05 PM CDT) Syphilis treponemal IgG Non-reactiveComment: Non-reactive [facility] DEPARTMENT OF Non-reactive: No serological PATHOLOGY AND evidence of Syphilis infection GENOMIC [facility] Specimen Serum Performing Organization Address City/[facility] Facility[facility] Phone Number [facility] DEPARTMENT OF [address] [place] [address] PATHOLOGY AND GENOMIC MEDICINE * Cytomegalovirus by PCR (01/24/2018 9:05 PM CDT) Cytomegalovirus by PCR Not-Detected Not-Detected IU/mL [facility] DEPARTMENT OF PATHOLOGY AND GENOMIC MEDICINE Cytomegalovirus by PCR See link below for PDF Lab [facility] DEPARTMENT OF ReportComment: Case Number: PATHOLOGY AND [id number] GENOMIC MEDICINE Performing Organization Address City/[facility] Facility[facility] Phone Number [facility] DEPARTMENT OF [address] [place] [address] PATHOLOGY AND GENOMIC MEDICINE * CT Maxillofacial W Contrast (01/24/2018 1:18 PM CDT) Narrative Performed At EXAMINATION:CT MAXILLOFACIAL W CONTRAST [...] soft tissue abscess. Reactive/inflammatory left submandibular lymphadenopathy. [facility]-[id number] Procedure Note Interface, Radiology Results Incoming - [...] soft tissue abscess. Reactive/inflammatory left submandibular lymphadenopathy. [facility]-[id number] Performing Organization Address City/[facility]/[place] [address] * Herpes simplex virus by PCR (01/24/2018 9:57 AM CDT) Herpes virus, PCR Not-Detected Not-Detected [facility] DEPARTMENT OF PATHOLOGY AND GENOMIC MEDICINE Herpes virus, PCR See link below for PDF Lab [facility] DEPARTMENT OF ReportComment: Case Number: PATHOLOGY AND [id number] GENOMIC MEDICINE Performing Organization Address [facility] [place] [address] PATHOLOGY AND GENOMIC MEDICINE * Enterovirus by PCR (01/24/2018 5:42 AM CDT) Enterovirus PCR Not-Detected Not-Detected [facility] DEPARTMENT OF PATHOLOGY AND GENOMIC MEDICINE Enterovirus PCR See link below for PDF Lab [facility] DEPARTMENT OF ReportComment: Case Number: PATHOLOGY AND [id number] GENOMIC MEDICINE Performing Organization Address [facility] [place] [address] PATHOLOGY AND GENOMIC MEDICINE * Echovirus antibodies (01/24/2018 5:20 AM CDT) Echovirus Ab type 6 <1:10 <1:10 [facility] Echovirus Ab type 7 1:320 (H) <1:10 [facility] Echovirus Ab type 9 1:10 <1:10 [facility] Echovirus Ab type 11 1:20 <1:10 [facility] Echovirus Ab type 30 1:40 <1:10 [facility] Comment: INTERPRETIVE INFORMATION: Echovirus Antibodies Single positive antibody titers of greater than or equal to 1:80 may indicate past or current infection. Sero- conversion or an increase in titers between acute and convalescent sera of at least fourfold is considered strong evidence of current or recent infection. Performed by [facility], [address] [place], [place] [id number] [email or web address], Santi Conti MD - Lab. Director Specimen Serum Performing Organization Address City/[facility] Facilitycode Phone Number [facility] [address] [place] [address] * Coxsackie A serotype 9 titer (01/24/2018 5:20 AM CDT) Coxsackie A sero 9 1:16 (H) <1:8 [facility] Comment: INTERPRETIVE INFORMATION: Coxsackie A Serotype 9 Titer Single positive antibody titers of greater than 1:32 may indicate past or current infection. Seroconversion or an increase in titers between acute and convalescent sera of at least fourfold is considered strong evidence of current or recent infection. Performed by [facility], [address] [place] [address] [email or web address], Santi Conti MD - Lab. Director Specimen Serum Performing Organization Address [facility] Facilityconh Phone Number [facility] [address] [place] [address] * Basic metabolic panel (01/24/2018 4:00 AM CDT) Only the most recent of 2 results within the time period is included. Sodium 133 (L) 135 - 148 mEq/L [facility] DEPARTMENT OF PATHOLOGY AND GENOMIC MEDICINE Potassium 4.5 3.5 - 5.0 mEq/L [facility] DEPARTMENT OF PATHOLOGY AND GENOMIC MEDICINE Chloride 96 (L) 98 - 112 mEq/L [facility] DEPARTMENT OF PATHOLOGY AND GENOMIC MEDICINE CO2 25 24 - 31 mEq/L [facility] DEPARTMENT OF PATHOLOGY AND GENOMIC MEDICINE Anion gap 12 7 - 15 mEq/L [facility] DEPARTMENT OF Comment: PATHOLOGY AND Starting from January [facility] , anion gap calculation no longer incorporates potassium. Please note the change. BUN 10 6 - 20 mg/dL [facility] DEPARTMENT OF PATHOLOGY AND GENOMIC MEDICINE Creatinine 1.4 (H) 0.7 - 1.2 mg/dL [facility] DEPARTMENT OF PATHOLOGY AND GENOMIC MEDICINE Glucose 87 65 - 99 mg/dL [facility] DEPARTMENT OF PATHOLOGY AND GENOMIC MEDICINE Calcium 8.9 8.3 - 10.2 mg/dL [facility] DEPARTMENT OF PATHOLOGY AND GENOMIC MEDICINE Specimen Plasma specimen Performing Organization Address City/[facility]/Zipcode Phone Number [address] [address] PATHOLOGY AND GENOMIC MEDICINE * ECG 12 lead (01/23/2018 3:29 PM CDT) Ventricular rate 90 [facility] Atrial rate 90 [facility] MT interval 132 [facility] QRSD interval 90 [facility] QT interval 330 [facility] QTC interval 403 [facility] P axis 1 29 [facility] QRS axis 1 -5 [facility] T wave axis 20 [facility] EKG impression Normal sinus rhythm-Normal [facility] ECG-No previous ECGs available- Performing Organization Address [facility] Facility[facility] Phone Number [facility] [address] [place] [address] * HIV quantitative by PCR (01/23/2018 12:30 PM CDT) HIV quantitative, PCR Not-Detected Not-Detected copies/mL [facility] DEPARTMENT OF PATHOLOGY AND GENOMIC MEDICINE HIV quantitative, PCR See link below for PDF Lab [facility] DEPARTMENT OF ReportComment: Case Number: PATHOLOGY AND [id number] GENOMIC MEDICINE Specimen Blood Performing Organization Address [facility] Facility[facility] Phone Number [facility] DEPARTMENT OF [address] [place] [address] PATHOLOGY AND GENOMIC MEDICINE * Lactic acid level (01/23/2018 12:00 PM CDT) Only the most recent of 2 results within the time period is included. Lactic acid 1.4 0.5 - 2.2 mmol/L [facility] DEPARTMENT OF PATHOLOGY AND GENOMIC MEDICINE Specimen Blood Performing Organization Address [facility] Facility[facility] Phone Number [facility] DEPARTMENT OF [address] [place] [address] PATHOLOGY AND GENOMIC MEDICINE * Echocardiogram complete w contrast and 3D if needed (01/23/2018 10:36 AM CDT) Narrative Performed At [facility] Echocardiography Report [address]Name:SHO MONDRAGON.ID:[id number] .Date: 01/23/2018 Refer.MD:JEYSON BURNS MD Exam Time: 9:58:00 AMStudy Type:Routine Echo Height:70inWeight:205lb BSA: 2.11 m2 DOBAge:1990,27Y Sex: MALEBP:131/65 HR:107 bpm Sonogrphr: KESHA Tabares, RCS Pat. Stat.:Inpatient Room:D906 Study Status:Final Echo Event ID:[id number] Order ID:[id number] Reason for Study:Knonw PFO, Symptoms or conditions [...] RAPof 5 mmHg. MEASUREMENTS: 2D Parasternal [place] LVOT 2.2 cmAo An2.2 cm LVIDd4.6 cmIndex2.2 cm/m Ao Rtd 3.1 cm Index1.5 cm/m LVIDs2.4 cm LV Gdmi394.5 g(122-174) LV%fs 48.4 % LVM Index 90.3 [...] 01/23/2018 1:35 PM CDT Echocardiography Report [address] [place] [address] Pat.Name: SHO MONDRAGON Pat.ID: [id number] .Date: 01/23/2018 Refer.MD: JEYSON BURNS MD Exam Time: 9:58:00 AM Study Type:Routine Echo Height: 70in Weight: 205lb BSA: 2.11 m2 Age: 8 1990,27Y Sex: MALE BP: 131/65 HR: 107 bpm Sonogrphr: KESHA Tabares, [facility] Pat. Stat.:[facility] Status:Final Echo Event ID:[id number] Order ID: [id number] Reason for Study:Knonw PFO, Symptoms or conditions [...] of 5 mmHg. MEASUREMENTS: 2D Parasternal [place] LVOT 2.2 cm Ao An 2.2 cm [...] PM Sudha Roach M.D. Performing Organization Address City/[facility] Facility[facility] Phone Number [facility] [address] [place] [address] * Varicella zoster virus Ab, IgM (01/23/2018 10:28 AM CDT) VZV IgM 0.00 <=0.90 [facility] Comment: Specimen is hemolyzed. Results may [...] months post -infection or immunization. Performed by [facility], [address] [place], [place] [id number] [email or web address], Santi Conti MD - Lab. Director Specimen Serum Performing Organization Address [facility] Facility[facility] Phone Number [facility] [address] [place] [address] * HSV type 1/2 combined Ab, IgM (01/23/2018 7:06 AM CDT) HSV 1/2 combined Ab, IgM SEE NOTE [facility] Comment: Herpes Simplex Virus Type 1 and/or 2 Antibodies, IgM by [facility] test code [id number] HSV 1 and/or 2 Abs, IgM by [...] than 12 months post-infection. Test performed by: [facility] [address] [place], [place] Specimen Serum Performing Organization Address [facility] Phone Number [facility] [address] [place] [address] * Respiratory pathogen panel (01/23/2018 5:00 AM CDT) Respiratory pathogen Negative for all pathogens [facility] DEPARTMENT OF panel tested: PATHOLOGY AND Negative [...] Specimen Nares - Right Performing Organization Address City/[facility]/Zipcode Phone Number [facility] DEPARTMENT OF [address] [place] [address] PATHOLOGY AND GENOMIC MEDICINE * Rocio-Bedoya virus antibody test (01/23/2018 4:55 AM CDT) EBV Ab to viral capsid POSITIVE (A) Negative [facility] DEPARTMENT OF Ag, IgG PATHOLOGY AND GENOMIC MEDICINE EBV Ab to viral capsid Negative Negative [facility] DEPARTMENT OF Ag, IgM PATHOLOGY AND GENOMIC MEDICINE EBV Ab to nuclear Ag, IgG POSITIVE (A) Negative [facility] DEPARTMENT OF PATHOLOGY AND GENOMIC MEDICINE EBV Ab to early (D) Ag, Negative Negative [facility] DEPARTMENT OF IgG Comment: PATHOLOGY AND Interpretive [...] Reactivation + Specimen Serum Performing Organization Address City/State/Zipcode Phone Number [facility] DEPARTMENT OF [address] [place] [address] PATHOLOGY AND GENOMIC MEDICINE * Cytomegalovirus Ab, IgM (01/23/2018 4:55 AM CDT) Cytomegalovirus Ab, IgM NegativeComment: Negative: CMV Negative [facility] DEPARTMENT OF IgM antibodies were not PATHOLOGY AND detected. GENOMIC MEDICINE Specimen Serum Performing Organization Address [facility] Phone Number [facility] [place] [address] PATHOLOGY AND [facility] * HIV 1, 2 antibody (01/23/2018 4:55 AM CDT) HIV 1, 2 antibody Non-reactive Non-reactive [facility] DEPARTMENT OF Comment: PATHOLOGY AND Starting from January 01 2016, GENOMIC MEDICINE 4th generation HIV screening and confirmation assays are in use at [facility], consistent with the CDC-recommended algorithm. [...] the testing algorithm, please refer to: http://stacks.cdc.gov/view/cdc /02548. Specimen Blood Performing Organization Address City/[facility] Phone Number [facility] [place] [address] PATHOLOGY AND GENOMIC MEDICINE * MRI Brain Wo Contrast (01/22/2018 3:22 PM CDT) Narrative Performed At EXAMINATION:MRI BRAIN WO CONTRAST RADIANT CLINICAL HISTORY:STROKE COMPARISON:None. TECHNIQUE: Standard noncontrast brain [...] of acute infarction, hemorrhage, or mass lesion. [facility]-[id number] Procedure Note Interface, Radiology Results Incoming - 01/22/2018 4:12 PM [...] of acute infarction, hemorrhage, or mass lesion. [facility]-[id number] Performing Organization Address City/State/Zipcode Phone Number [facility] [address] [place] [address] * MRA Head Wo Contrast (01/22/2018 3:06 PM CDT) Narrative Performed At [facility] EXAMINATION:MRA HEAD WO CONTRAST CLINICAL HISTORY:STROKE COMPARISON:Concurrent brain MRI on 01/22/2018. TECHNIQUE: Head MRA using 3D [id number] technique with multiplanar MIP reconstruction were obtained. FINDINGS: There is normal flow signal with no significant stenosis or occlusion along bilateral intracranial ICAs, ACAs, and MCAs. The anterior communicating artery complex is unremarkable. There is normal flow signal with no significant stenosis or occlusion along bilateral vertebral arteries, basilar artery, cerebellar arteries, and chiropractic neurologist. The vertebral arteries are codominant. The posterior communicating arteries are small and not well-visualized. There is no evidence of cerebral aneurysm in the proximal [place] within limits of MRA technique. IMPRESSION: Unremarkable head MRA with no significant stenosis or occlusion in the proximal [place]. [facility]-[id number] Procedure Note Interface, Radiology Results Incoming - 01/22/2018 4:14 PM CDT EXAMINATION: MRA HEAD WO CONTRAST CLINICAL HISTORY: STROKE COMPARISON: Concurrent brain MRI on 01/22/2018. TECHNIQUE: Head MRA using 3D mazf-br-lqgyrs technique with multiplanar MIP reconstruction were obtained. FINDINGS: There is normal flow signal with no significant stenosis or occlusion along bilateral intracranial ICAs, ACAs, and MCAs. The anterior communicating artery complex is unremarkable. There is normal flow signal with no significant stenosis or occlusion along bilateral vertebral arteries, basilar artery, cerebellar arteries, and chiropractic neurologist. The vertebral arteries are codominant. The posterior communicating arteries are small and not well-visualized. There is no evidence of cerebral aneurysm in the proximal [place] within limits of MRA technique. IMPRESSION: Unremarkable head MRA with no significant stenosis or occlusion in the proximal [place]. [facility]-[id number] Performing Organization Address City/State/Zipcode Phone Number [employer] [address] [place] [address] * MRA Neck Wo Contrast (01/22/2018 2:57 PM CDT) Narrative Performed At EXAMINATION: MRA NECK WO CONTRAST [facility] CLINICAL HISTORY: STROKE COMPARISON:None TECHNIQUE: 2-D and 3-D [id number]-ql-jdaewq MRA images of the cervical vessels were [...] with no significant stenosis by NASCET criteria. [facility]-[id number] Procedure Note Interface, Radiology Results Incoming - 01/22/2018 4:14 PM CDT EXAMINATION: MRA NECK WO CONTRAST CLINICAL HISTORY: STROKE COMPARISON: None TECHNIQUE: 2-D and 3-D Jttd-kh-hegrmh MRA images of the cervical vessels were [...] with no significant stenosis by NASCET criteria. [facility]-[id number] Performing Organization Address [facility] Phone Number [facility] [address] [place] [address] * XR Panorex (01/22/2018 1:37 PM CDT) Narrative Performed At EXAMINATION:XR PANOREX RADIANT CLINICAL HISTORY:Abscess, dental abscess and swelling COMPARISON:None. IMPRESSION: There are root canal changes involving the left mandibular first molar with small periapical lucency, cannot exclude periapical abscess. There is also questionable thin lucency in the left mandibular second and third molar regions. Recommend dedicated dental imaging for further evaluation. [facility]-[id number] Procedure Note Hm Interface, Radiology Results Incoming [...] Recommend dedicated dental imaging for further evaluation. [facility]-[id number] Performing Organization Address [facility] Facility[facility]h Phone Number [facility] [address] [place] [address] * Prothrombin mutation, factor II, by PCR (01/22/2018 11:45 AM CDT) Prothrombin gene mutation Normal Normal [facility] DEPARTMENT OF PATHOLOGY AND GENOMIC MEDICINE Prothrombin gene mutation See link below for PDF Lab [facility] DEPARTMENT OF ReportComment: Case Number: PATHOLOGY AND [id number] GENOMIC MEDICINE Specimen Blood Performing Organization Address [facility] Phone Number [facility] DEPARTMENT OF [address] [place] [address] PATHOLOGY AND GENOMIC MEDICINE * Beta-2 glycoprotein 1 antibody, IgG and IgM (01/22/2018 11:45 AM CDT) Beta-2 glycoprotein 1 <9.4 0.0 - 20.0 [facility] DEPARTMENT OF antibody, IgG Comment: PATHOLOGY AND Negative=<20.0 [facility] Positive >20.0 [facility] Beta-2 glycoprotein 1 <9.4 0.0 - 20.0 [facility] DEPARTMENT OF antibody, IgM Comment: PATHOLOGY AND Negative=<20.0 [facility] Positive >20.0 [facility] Specimen Blood Performing Organization Address City/[facility] Facilitycode Phone Number [facility] DEPARTMENT OF [address] [place] [address] PATHOLOGY AND GENOMIC MEDICINE * Functional protein S (01/22/2018 11:45 AM CDT) Functional protein S 113 74 - 160 % [facility] DEPARTMENT OF Comment: PATHOLOGY AND Functional Protein S GENOMIC MEDICINE performed.If result is decreased Total and Free Protein S Antigen will be performed. Specimen Blood Performing Organization Address City/[facility] Facility[facility] Phone Number [facility] DEPARTMENT OF [address] [place] [address] PATHOLOGY AND GENOMIC MEDICINE * Functional protein C (01/22/2018 11:45 AM CDT) Functional protein C 85 70 - 165 % [facility] DEPARTMENT OF PATHOLOGY AND GENOMIC MEDICINE Specimen Blood Performing Organization Address [facility] Phone Number [facility] DEPARTMENT OF [address] [place] [address] PATHOLOGY AND GENOMIC MEDICINE * Lupus anticoagulant panel (01/22/2018 11:45 AM CDT) Prothrombin time 14.4 12.0 - 15.0 sec [facility] DEPARTMENT OF PATHOLOGY AND GENOMIC MEDICINE INR 1.1 [facility] DEPARTMENT OF Comment: PATHOLOGY AND The International Normalized [facility] Ratio (INR) is a therapeutic monitoring tool for patients who are stable on oral anticoagulant therapy. An INR of 2.0-3.0 is suggested for deep vein thrombosis/pulmonary embolism. PTT 37.8 (H) 23.0 - 36.0 sec [facility] DEPARTMENT OF Comment: PATHOLOGY AND PTT therapeutic range for [facility] unfractionated heparin is 61.0-112.0 seconds which corresponds to Anti-Xa 0.3-0.7 U/ml. PTT lupus anticoagulant 38.0 27.0 - 38.0 sec [facility] DEPARTMENT OF Comment: PATHOLOGY AND Lupus anticoagulant (LA) panel [facility] consists of PT, PTT, PTT-LA, and [...] diagnosis. DRVVT 41.6 29.0 - 46.0 sec [facility] DEPARTMENT OF PATHOLOGY AND GENOMIC MEDICINE Specimen Blood Performing Organization Address City/[facility] Facility[facility] Phone Number [facility] [place] [address] PATHOLOGY AND GENOMIC MEDICINE * Cardiolipin antibodies (01/22/2018 11:45 AM CDT) Cardiolipin IgG 1 0 - 14 GPL [facility] DEPARTMENT OF Comment: PATHOLOGY AND Negative=<15 GENOMIC MEDICINE GPL Indeterminate=15-20 GPL Positive=>20 GPL Cardiolipin IgM 4 0 - 12 MPL [facility] DEPARTMENT OF Comment: PATHOLOGY AND Negative=<13 GENOMIC MEDICINE MPL Indeterminate=13-20 MPL Positive=>20 MPL Specimen Blood Performing Organization Address [facility] Phone Number [facility] [place] [address] PATHOLOGY AND [facility] * Factor V leiden by PCR (01/22/2018 11:45 AM CDT) Factor V Leiden Normal [facility] DEPARTMENT OF PATHOLOGY AND GENOMIC MEDICINE Factor V Leiden See link below for PDF Lab [facility] DEPARTMENT OF ReportComment: Case Number: PATHOLOGY AND [id number] GENOMIC MEDICINE Specimen Blood Performing Organization Address [facility] Phone Number [facility] [place] [address] PATHOLOGY AND GENOMIC MEDICINE * Antithrombin III level (01/22/2018 11:45 AM CDT) Antithrombin III 103 80 - 130 % [facility] DEPARTMENT OF PATHOLOGY AND GENOMIC MEDICINE Specimen Blood Performing Organization Address City/[facility] Facility[facility] Phone Number [facility] [place] [address] PATHOLOGY AND [facility] * Factor VIII assay (01/22/2018 11:45 AM CDT) Factor VIII activity 111 60 - 150 % [facility] DEPARTMENT OF PATHOLOGY AND GENOMIC MEDICINE Specimen Blood Performing Organization Address City/[facility] [place] [address] PATHOLOGY AND [employer] MEDIC[facility] * C-reactive protein (01/22/2018 11:45 AM CDT) CRP 4.62 (H) 0.00 - 0.50 mg/dL [facility] DEPARTMENT OF PATHOLOGY AND GENOMIC MEDICINE Specimen Plasma specimen Performing Organization Address [facility] Facilitycode Phone Number [facility] DEPARTMENT [address] [address] PATHOLOGY AND GENOMIC MEDICINE * Partial thromboplastin time, activated (01/21/2018 10:00 PM CDT) PTT 34.5 23.0 - 36.0 sec [facility] DEPARTMENT OF Comment: PATHOLOGY AND PTT therapeutic range for GENOMIC MEDICINE unfractionated heparin is 61.0-112.0 seconds which corresponds to Anti-Xa 0.3-0.7 U/ml. Specimen Blood Performing Organization Address [facility] Facilitycode Phone Number [address] [address] PATHOLOGY AND GENOMIC MEDICINE * Prothrombin time with INR (01/21/2018 10:00 PM CDT) Prothrombin time 14.1 12.0 - 15.0 sec [facility] DEPARTMENT OF PATHOLOGY AND GENOMIC MEDICINE INR 1.1 [facility] DEPARTMENT OF Comment: PATHOLOGY AND The International Normalized GENOMIC MEDICINE Ratio (INR) is a therapeutic monitoring tool for patients who are stable on oral anticoagulant therapy. An INR of 2.0-3.0 is suggested for deep vein thrombosis/pulmonary embolism. Specimen Blood Performing Organization Address [facility] Phone Number [facility] [place] [address] PATHOLOGY AND [employer] [facility]ICINE * XR Chest 1 Vw Portable (01/21/2018 9:58 PM CDT) Narrative Performed At Examination:XR CHEST 1 VW PORTABLE RADIANT Clinical History:TIA Comparison: None. Technique: Single frontal view of the chest is obtained. Findings: The lungs are free of infiltrate. The heart size is normal. No pleural effusion is seen. Impression: No active cardiopulmonary disease identified. [facility]-[id number] Procedure Note Interface, Radiology Results Incoming - 01/21/2018 11:32 PM CDT Examination: XR CHEST 1 VW PORTABLE Clinical History: TIA Comparison: None. Technique: Single frontal view of the chest is obtained. Findings: The lungs are free of infiltrate. The heart size is normal. No pleural effusion is seen. Impression: No active cardiopulmonary disease identified. [facility]-[id number] Performing Organization Address [facility]/[place] [address] * Blood culture, aerobic & anaerobic (01/21/2018 9:45 PM CDT) Only the most recent of 2 results within the time period is included. Blood culture isolate No growth after 5 days of [facility] DEPARTMENT OF incubation. PATHOLOGY AND Comment: GENOMIC MEDICINE Specimen Information Specimen Source: Blood Specimen Site: Arm, left Specimen Blood - Arm, left Performing Organization Address City/[facility] Facility[facility] Phone Number [address] [address] PATHOLOGY AND GENOMIC MEDICINE * Urinalysis, automated with microscopy (01/21/2018 9:15 PM CDT) Color, UA My [facility] DEPARTMENT OF PATHOLOGY AND GENOMIC MEDICINE Appearance, UA Clear [facility] DEPARTMENT OF PATHOLOGY AND GENOMIC MEDICINE Specific gravity, UA 1.026 1.001 - 1.035 [facility] DEPARTMENT OF PATHOLOGY AND GENOMIC MEDICINE pH, UA 6.0 5.0 - 8.5 [facility] DEPARTMENT OF PATHOLOGY AND GENOMIC MEDICINE Protein, UA Negative Negative [facility] DEPARTMENT OF PATHOLOGY AND GENOMIC MEDICINE Glucose, UA Negative Negative [facility] DEPARTMENT OF PATHOLOGY AND GENOMIC MEDICINE Ketones, UA Negative Negative [facility] DEPARTMENT OF PATHOLOGY AND GENOMIC MEDICINE Bilirubin, UA Negative Negative [facility] DEPARTMENT OF PATHOLOGY AND GENOMIC MEDICINE Blood, UA Small (A) Negative [facility] DEPARTMENT OF PATHOLOGY AND GENOMIC MEDICINE Nitrite, UA Negative Negative [facility] DEPARTMENT OF PATHOLOGY AND GENOMIC MEDICINE Urobilinogen, UA 4.0 (A) <2.0 [facility] DEPARTMENT OF PATHOLOGY AND GENOMIC MEDICINE Leukocyte esterase, UA Negative Negative [facility] DEPARTMENT OF PATHOLOGY AND GENOMIC MEDICINE Epithelial cells, UA <1 /HPF [facility] DEPARTMENT OF PATHOLOGY AND GENOMIC MEDICINE WBC, UA 1 0 - 1 /HPF [facility] DEPARTMENT OF PATHOLOGY AND GENOMIC MEDICINE RBC, UA 3 0 - 5 /HPF [facility] DEPARTMENT OF PATHOLOGY AND GENOMIC MEDICINE Bacteria, UA Few None seen [facility] DEPARTMENT OF PATHOLOGY AND GENOMIC MEDICINE Yeast, UA None seen [facility] DEPARTMENT OF PATHOLOGY AND GENOMIC MEDICINE Yeast with pseudohyphae, None seen [facility] DEPARTMENT OF UA PATHOLOGY AND GENOMIC MEDICINE Specimen Urine Performing Organization Address City/[facility]/Zipcode Phone Number [address] [address] PATHOLOGY AND GENOMIC MEDICINE after 11/29/2017 Insurance Payer Benefit Subscriber ID Type Phone Address Plan / Group BCBS BCBS xxxxxxxxxxxx PPO CHOICE PPO/DONNA ALVARES PPO Advance Directives Patient has advance care planning documents on file. For more information, celestino payne contact: Fran Eden [address] [place] [address]
[2018-11-30] MEDS ORDERED: SODIUM CHLORIDE 0.9% 1000ML 1,000 ML IV STA (14:20)
[2018-11-30] MEDS ORDERED: NITROGLYCERIN 2% OINT 1 GM PKT TOP ONE (14:30)
[2018-11-30 14:43] LABS: BASOPHILS # (AUTO) 0.1 (0.0-0.1); BASOPHILS % 0.6 % (0.0-1.0); EOSINOPHILS # (AUTO) 0.3 (0.0-0.4); EOSINOPHILS % 2.7 % (0.0-6.0); HEMOGLOBIN 16.6 g/dL (14.0-18.0); LYMPHOCYTES # (AUTO) 4.1 (1.0-3.2); LYMPHOCYTES % 32.8 % (18.0-39.1); MEAN CORPUSCULAR HEMOGLOBIN 29.9 pg (28-32); MEAN CORPUSCULAR HGB CONC 34.6 g/dL (31-35); MEAN CORPUSCULAR VOLUME 86.3 fL (81-99); MONOCYTES # (AUTO) 0.6 (0.2-0.8); MONOCYTES % 4.9 % (4.4-11.3); NEUTROPHILS # (AUTO) 7.3 (2.1-6.9); NEUTROPHILS % 58.5 % (38.7-80.0); PLATELET COUNT 296 x10e3/uL (140-360); RED BLOOD COUNT 5.56 x10e6/uL (4.3-5.7); RED CELL DISTRIBUTION WIDTH 12.5 % (11.7-14.4)
[2018-11-30 15:01] LABS: INR 0.87; PROTHROMBIN TIME 12.7 seconds (11.9-14.5)
[2018-11-30 15:02] LABS: PARTIAL THROMBOPLASTIN TIME 30.8 seconds (23.8-35.5)
[2018-11-30 15:05] LABS: ALANINE AMINOTRANSFERASE 37 IU/L (0-55); ALBUMIN 3.9 g/dL (3.5-5.0); ALBUMIN/GLOBULIN RATIO 1.3 (0.8-2.0); ALKALINE PHOSPHATASE 135 IU/L (40-150); BLOOD UREA NITROGEN 16 mg/dL (7-26); BUN/CREATININE RATIO 11 (6-25); CALCIUM 9.4 mg/dL (8.4-10.2); CARBON DIOXIDE 29 mmol/L (22-29); CHLORIDE 96 mmol/L (98-107); CREATININE, SERUM 1.42 mg/dL (0.72-1.25); EST GLOMERULAR FILTRATION RATE 59 ML/MIN (60-); GLUCOSE 136 mg/dL (74-118); SODIUM 134 mmol/L (136-145)
[2018-11-30 15:26] LABS: CREATINE KINASE 142 IU/L (30-200)
--- NOTE | 2018-11-30 15:56 | Diagnostic Imaging Report ---
Examination: Single AP view of the chest. COMPARISON: None. INDICATION: Chest pain DISCUSSION: Lines/tubes: None. Lungs: The lungs are well inflated and clear. No pneumonia or pulmonary edema. Pleura: No pleural effusion or pneumothorax. Heart and mediastinum: The heart and the mediastinum are unremarkable. Bones and soft tissues: No acute bony abnormalities. IMPRESSION: 1. No acute cardiopulmonary abnormalities. Signed by: Dr. Taurus Hernández M.D. on 11/30/2018 3:52 PM
[2018-11-30] MEDS ORDERED: ONDANSETRON HCL INJ 2MG/ML 2ML 2 MG/ML VIAL IV NR (17:00)
[2018-11-30] MEDS ORDERED: MORPHINE SULFATE INJ 4 MG/ML INJ 1ML IV NR (17:00)
[2018-11-30] MEDS ORDERED: MORPHINE SULFATE 2 MG/ML SYR 1ML IV PRN (17:30)
[2018-11-30] MEDS ORDERED: ASPIRIN 81 MG ENTERIC COATED PO SCH (18:00)
--- NOTE | 2018-11-30 18:29 | Diagnostic Imaging Report ---
EXAM: CT Chest WITH contrast 11/30/2018 5:27 PM INDICATION: ^PE PROTOCOL COMPARISON: Chest radiograph 11/30/2018 and 07/11/2018 TECHNIQUE: Spiral CT images of the chest were performed from the lung apices through the level of the adrenal glands after the IV contrast administration. Thin section reconstructions were obtained with special concentration on the pulmonary arteries. IV CONTRAST: 100 mL of Isovue-370 ORAL CONTRAST: None COMPLICATIONS: None RADIATION DOSE: Total DLP: 596.1 mGy*cm Estimated effective dose: (DLP x 0.015 x size factor) mSv CTDIvol has been reviewed. It is below the limits set by the Radiation Protocol Committee (RPC). FINDINGS: LINES/ TUBES: None. PULMONARY ARTERIES: No filling defects are identified in the main, right or left pulmonary arteries to their segmental and subsegmental levels, to suggest pulmonary embolism. The main pulmonary artery is normal in size. LUNGS AND AIRWAYS: Subsegmental consolidations in both lung bases with mild volume loss and adjacent peribronchial wall thickening. Airways are normal. PLEURA: The pleural spaces are clear. HEART AND MEDIASTINUM: The thyroid gland is normal. No mediastinal, hilar or axillary lymphadenopathy. The heart is normal in size. There is no pericardial effusion. The thoracic aorta and pulmonary arteries are unremarkable. UPPER ABDOMEN: Unremarkable. BONES: The visualized bony thorax is within normal limits. SOFT TISSUES: Unremarkable. IMPRESSION: No pulmonary embolism. Subsegmental atelectasis with or without superimposed infection given the presence of peribronchial wall thickening. These findings are new when compared to 07/11/2018. Signed by: Dr. Kristina Sears M.D. on 11/30/2018 6:26 PM
[2018-11-30] MEDS: NITROGLYCERIN 2% OINT 1 GM PKT TOP SCH (18:45)
[2018-11-30] MEDS ORDERED: IOPAMIDOL 370 MG/ML 200 ML INFUS..BTL INJ ONE (19:01)
[2018-11-30] MEDS ORDERED: SODIUM CHLORIDE 0.9% 50ML 50 ML ONE (19:01)
--- OUTSIDE RECORDS SUMMARY | 2018-11-30 19:39 | XMS REPORT | Clinical Summary ---
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 WBC 9.34 4.50 - 11.00 k/uL [facility] DEPARTMENT OF PATHOLOGY AND GENOMIC MEDICINE RBC 4.94 4.40 - 6.00 m/uL [facility] DEPARTMENT OF PATHOLOGY AND GENOMIC MEDICINE HGB 14.8 14.0 - 18.0 g/dL [facility] DEPARTMENT OF PATHOLOGY AND GENOMIC MEDICINE HCT 42.3 41.0 - 51.0 % [facility] DEPARTMENT OF PATHOLOGY AND GENOMIC MEDICINE MCV 85.6 82.0 - 100.0 fL [facility] DEPARTMENT OF PATHOLOGY AND GENOMIC MEDICINE MCH 30.0 27.0 - 34.0 pg [facility] DEPARTMENT OF PATHOLOGY AND GENOMIC MEDICINE MCHC 35.0 31.0 - 37.0 g/dL [facility] DEPARTMENT OF PATHOLOGY AND GENOMIC MEDICINE RDW - SD 37.4 37.0 - 55.0 fL [facility] DEPARTMENT OF PATHOLOGY AND GENOMIC MEDICINE MPV 9.4 8.8 - 13.2 fL [facility] DEPARTMENT OF PATHOLOGY AND GENOMIC MEDICINE Platelet count 270 150 - 400 k/uL [facility] DEPARTMENT OF PATHOLOGY AND GENOMIC MEDICINE Nucleated RBC 0.00 /100 WBC [facility] DEPARTMENT OF PATHOLOGY AND GENOMIC MEDICINE Neutrophils 54.5 39.0 - 69.0 % [facility] DEPARTMENT OF PATHOLOGY AND GENOMIC MEDICINE Lymphocytes 30.9 25.0 - 45.0 % [facility] DEPARTMENT OF PATHOLOGY AND GENOMIC MEDICINE Monocytes 7.8 0.0 - 10.0 % [facility] DEPARTMENT OF PATHOLOGY AND GENOMIC MEDICINE Eosinophils 5.4 (H) 0.0 - 5.0 % [facility] DEPARTMENT OF PATHOLOGY AND GENOMIC MEDICINE Basophils 0.9 0.0 - 1.0 % [facility] DEPARTMENT OF PATHOLOGY AND GENOMIC MEDICINE Immature granulocytes 0.5Comment: "Immature 0.0 - 1.0 % [facility] DEPARTMENT OF granulocytes" (promyelocytes, PATHOLOGY AND myelocytes, metamyelocytes) GENOMIC MEDICINE Specimen Blood Performing Organization Address City/State/Zipcode Phone Number [facility] DEPARTMENT OF [address] [place] [address] PATHOLOGY AND GENOMIC MEDICINE * Estimated GFR (01/26/2018 4:00 AM CDT) Only the most recent of 5 results within the time period is included. GFR Non Af Amer 80 mL/min/1.73 m2 [facility] DEPARTMENT OF PATHOLOGY AND GENOMIC MEDICINE GFR Af Amer >90 mL/min/1.73 m2 [facility] DEPARTMENT OF Comment: PATHOLOGY AND Chronic [...] specimen Performing Organization Address City/State/Zipcode Phone Number [address] [address] PATHOLOGY AND GENOMIC MEDICINE * Comprehensive metabolic panel (01/26/2018 4:00 AM CDT) Only the most recent of 3 results within the time period is included. Sodium 136 135 - 148 mEq/L [facility] DEPARTMENT OF PATHOLOGY AND GENOMIC MEDICINE Potassium 4.2 3.5 - 5.0 mEq/L [facility] DEPARTMENT OF PATHOLOGY AND GENOMIC MEDICINE Chloride 97 (L) 98 - 112 mEq/L [facility] DEPARTMENT OF PATHOLOGY AND GENOMIC MEDICINE CO2 27 24 - 31 mEq/L [facility] DEPARTMENT OF PATHOLOGY AND GENOMIC MEDICINE Anion gap 12 7 - 15 mEq/L [facility] DEPARTMENT OF Comment: PATHOLOGY AND Starting from January GENOMIC MEDICINE , anion gap calculation no longer incorporates potassium. Please note the change. BUN 10 6 - 20 mg/dL [facility] DEPARTMENT OF PATHOLOGY AND GENOMIC MEDICINE Creatinine 1.1 0.7 - 1.2 mg/dL [facility] DEPARTMENT OF PATHOLOGY AND GENOMIC MEDICINE Glucose 94 65 - 99 mg/dL [facility] DEPARTMENT OF PATHOLOGY AND GENOMIC MEDICINE Calcium 9.6 8.3 - 10.2 mg/dL [facility] DEPARTMENT OF PATHOLOGY AND GENOMIC MEDICINE Protein 7.5 6.3 - 8.3 g/dL [facility] DEPARTMENT OF Comment: PATHOLOGY AND [place] GENOMIC MEDICINE 4.6-7.0 g/dL 1 week 4.4-7.6 g/dL 7 months-1year 5.1-7.3 g/dL 1-2 years5.6-7 .5 g/dL >3 years6.0-8 .0 g/dL 18-150 6.3-8.3 g/dL Albumin 3.2 (L) 3.5 - 5.0 g/dL [facility] DEPARTMENT OF PATHOLOGY AND GENOMIC MEDICINE A/G ratio 0.7 0.7 - 3.8 [facility] DEPARTMENT OF PATHOLOGY AND GENOMIC MEDICINE Alkaline phosphatase 109 40 - 129 U/L [facility] DEPARTMENT OF PATHOLOGY AND GENOMIC MEDICINE AST 50 10 - 50 U/L [facility] DEPARTMENT OF PATHOLOGY AND GENOMIC MEDICINE ALT 56 (H) 5 - 50 U/L [facility] DEPARTMENT OF PATHOLOGY AND GENOMIC MEDICINE Total bilirubin 0.4 0.0 - 1.2 mg/dL [facility] DEPARTMENT OF PATHOLOGY AND GENOMIC MEDICINE Specimen Plasma specimen Performing Organization Address City/State/Zipcode Phone Number [facility] [address] [place] [address] PATHOLOGY AND GENOMIC MEDICINE * Syphilis treponemal IgG (01/24/2018 9:05 PM CDT) Syphilis treponemal IgG Non-reactiveComment: Non-reactive [facility] DEPARTMENT OF Non-reactive: No serological PATHOLOGY AND evidence of Syphilis infection GENOMIC [facility] Specimen Serum Performing Organization Address City/[facility] Phone Number [facility] DEPARTMENT OF [address] [place] [address] PATHOLOGY AND GENOMIC MEDICINE * Cytomegalovirus by PCR (01/24/2018 9:05 PM CDT) Cytomegalovirus by PCR Not-Detected Not-Detected IU/mL [facility] DEPARTMENT OF PATHOLOGY AND GENOMIC MEDICINE Cytomegalovirus by PCR See link below for PDF Lab [facility] DEPARTMENT OF ReportComment: Case Number: PATHOLOGY AND [id number] GENOMIC MEDICINE Performing Organization Address City/[facility] Phone Number [facility] DEPARTMENT OF [address] [place] [address] PATHOLOGY AND GENOMIC MEDICINE * CT Maxillofacial [...] soft tissue abscess. Reactive/inflammatory left submandibular lymphadenopathy. [facility]-[id number] Procedure Note Interface, Radiology Results Incoming - [...] soft tissue abscess. Reactive/inflammatory left submandibular lymphadenopathy. [facility]-[id number] Performing Organization Address City/[facility]/[place] [address] * Herpes simplex virus by PCR (01/24/2018 9:57 AM CDT) Herpes virus, PCR Not-Detected Not-Detected [facility] DEPARTMENT OF PATHOLOGY AND GENOMIC MEDICINE Herpes virus, PCR See link below for PDF Lab [facility] DEPARTMENT OF ReportComment: Case Number: PATHOLOGY AND [id number] GENOMIC MEDICINE Performing Organization Address [facility] [place] [place] [address] PATHOLOGY AND GENOMIC MEDICINE * Enterovirus by PCR (01/24/2018 5:42 AM CDT) Enterovirus PCR Not-Detected Not-Detected [facility] DEPARTMENT OF PATHOLOGY AND GENOMIC MEDICINE Enterovirus PCR See link below for PDF Lab [facility] DEPARTMENT OF ReportComment: Case Number: PATHOLOGY AND [id number] GENOMIC MEDICINE Performing Organization Address [facility] Hospital[facility] [place] [address] PATHOLOGY AND GENOMIC MEDICINE * Echovirus antibodies (01/24/2018 5:20 AM CDT) Echovirus Ab type 6 <1:10 <1:10 [facility] Echovirus Ab type 7 1:320 (H) <1:10 [facility] Echovirus Ab type 9 1:10 <1:10 [facility] Echovirus Ab type 11 1:20 <1:10 [facility] Echovirus Ab type 30 1:40 <1:10 [facility] Comment: INTERPRETIVE INFORMATION: Echovirus Antibodies Single positive antibody titers of greater than or equal to 1:80 may indicate past or current infection. Sero- conversion or an increase in titers between acute and convalescent sera of at least fourfold is considered strong evidence of current or recent infection. Performed by [facility], [address] [place], [place] [id number] [email or web address], Santi Conti MD - Lab. Director Specimen Serum Performing Organization Address City/[facility] Phone Number [facility] [address] [place] [address] * Coxsackie A serotype 9 titer (01/24/2018 5:20 AM CDT) Coxsackie A sero 9 1:16 (H) <1:8 [facility] Comment: INTERPRETIVE INFORMATION: Coxsackie A Serotype 9 Titer Single positive antibody titers of greater than 1:32 may indicate past or current infection. Seroconversion or an increase in titers between acute and convalescent sera of at least fourfold is considered strong evidence of current or recent infection. Performed by [facility], [address] [place] [address] www[email or web address], Santi Conti MD - Lab. Director Specimen Serum Performing Organization Address [facility] Phone Number [facility] [address] [place] [address] * Basic metabolic panel (01/24/2018 4:00 AM CDT) Only the most recent of 2 results within the time period is included. Sodium 133 (L) 135 - 148 mEq/L [facility] DEPARTMENT OF PATHOLOGY AND GENOMIC MEDICINE Potassium 4.5 3.5 - 5.0 mEq/L [facility] DEPARTMENT OF PATHOLOGY AND GENOMIC MEDICINE Chloride 96 (L) 98 - 112 mEq/L [facility] DEPARTMENT OF PATHOLOGY AND GENOMIC MEDICINE CO2 25 24 - 31 mEq/L [facility] DEPARTMENT OF PATHOLOGY AND GENOMIC MEDICINE Anion gap 12 7 - 15 mEq/L [facility] DEPARTMENT OF Comment: PATHOLOGY AND Starting from January [facility] MEDICINE , anion gap calculation no longer incorporates potassium. Please note the change. BUN 10 6 - 20 mg/dL [facility] DEPARTMENT OF PATHOLOGY AND GENOMIC MEDICINE Creatinine 1.4 (H) 0.7 - 1.2 mg/dL [facility] DEPARTMENT OF PATHOLOGY AND GENOMIC MEDICINE Glucose 87 65 - 99 mg/dL [facility] DEPARTMENT OF PATHOLOGY AND GENOMIC MEDICINE Calcium 8.9 8.3 - 10.2 mg/dL [facility] DEPARTMENT OF PATHOLOGY AND GENOMIC MEDICINE Specimen Plasma specimen Performing Organization Address City/[facility]/Zipcode Phone Number [address] [address] PATHOLOGY AND GENOMIC MEDICINE * ECG 12 lead (01/23/2018 3:29 PM CDT) Ventricular rate 90 [facility] MUSE Atrial rate 90 [facility] MUSE WA interval 132 [facility] MUSE QRSD interval 90 [facility] MUSE QT interval 330 [facility] MUSE QTC interval 403 [facility] MUSE P axis 1 29 [facility] MUSE QRS axis 1 -5 [facility] MUSE T wave axis 20 [facility] MUSE EKG impression Normal sinus rhythm-Normal [facility] MUSE ECG-No previous ECGs available- Performing Organization Address [facility]code Phone Number [facility] MUSE [address] [place] [address] * HIV quantitative by PCR (01/23/2018 12:30 PM CDT) HIV quantitative, PCR Not-Detected Not-Detected copies/mL [facility] DEPARTMENT OF PATHOLOGY AND GENOMIC MEDICINE HIV quantitative, PCR See link below for PDF Lab [facility] DEPARTMENT OF ReportComment: Case Number: PATHOLOGY AND [id number] GENOMIC MEDICINE Specimen Blood Performing Organization Address [facility]code Phone Number [facility] DEPARTMENT OF [address] [place] [address] PATHOLOGY AND GENOMIC MEDICINE * Lactic acid level (01/23/2018 12:00 PM CDT) Only the most recent of 2 results within the time period is included. Lactic acid 1.4 0.5 - 2.2 mmol/L [facility] DEPARTMENT OF PATHOLOGY AND GENOMIC MEDICINE Specimen Blood Performing Organization Address [facility] Phone Number [facility] DEPARTMENT OF [address] [place] [address] PATHOLOGY AND GENOMIC MEDICINE * Echocardiogram complete w contrast and 3D if needed (01/23/2018 10:36 AM CDT) Narrative Performed At [facility] Echocardiography Report [address]Name:SHO MONDRAGON.ID:[id number] .Date: 01/23/2018 Refer.MD:JEYSON BURNS MD Exam Time: 9:58:00 AMStudy Type:Routine Echo Height:70inWeight:205lb BSA: 2.11 m2 DOBAge:1990,27Y Sex: MALEBP:131/65 HR:107 bpm Sonogrphr: KESHA Tabares, RCS Pat. Stat.:Inpatient Room:D906 Study Status:Final Echo Event ID:[id number] Order ID:[id number] Reason for Study:Knonw PFO, Symptoms or conditions [...] RAPof 5 mmHg. MEASUREMENTS: 2D Parasternal [place] LVOT 2.2 cmAo An2.2 cm LVIDd4.6 cmIndex2.2 cm/m Ao Rtd 3.1 cm Index1.5 cm/m LVIDs2.4 cm LV Uepx172.5 g(122-174) LV%fs 48.4 % LVM Index 90.3 [...] 01/23/2018 1:35 PM CDT Echocardiography Report [address] [place] [address] Pat.Name: SHO MONDRAGON Pat.ID: [id number] .Date: 01/23/2018 Refer.MD: JEYSON BURNS MD Exam Time: 9:58:00 AM Study Type:Routine Echo Height: 70in Weight: 205lb BSA: 2.11 m2 Age: 8 1990,27Y Sex: MALE BP: 131/65 HR: 107 bpm Sonogrphr: KESHA Tabares, [facility] Pat. Stat.:Inpatient Room: [facility] [place] Study Status:Final Echo Event ID:[id number] Order ID: [id number] Reason for Study:Knonw PFO, Symptoms or conditions [...] of 5 mmHg. MEASUREMENTS: 2D Parasternal [place] LVOT 2.2 cm Ao An 2.2 cm [...] PM Sudha Roach M.D. Performing Organization Address City/[facility]code Phone Number [facility] [address] [place] [address] * Varicella zoster virus Ab, IgM (01/23/2018 [...] months post -infection or immunization. Performed by [facility], [address] [place], [place] [id number] www[email or web address], Santi Conti MD - Lab. Director Specimen Serum Performing Organization Address [facility] Hospitalcome Phone Number [facility] [address] [place] [address] * HSV type 1/2 combined Ab, IgM (01/23/2018 7:06 AM CDT) HSV 1/2 combined Ab, IgM SEE NOTE [facility] Comment: Herpes Simplex Virus Type 1 and/or 2 Antibodies, IgM by [facility] test code [id number] HSV 1 and/or 2 Abs, IgM by [...] than 12 months post-infection. Test performed by: [facility] [address] [place], [place] Specimen Serum Performing Organization Address [facility] Hospitalcode Phone Number [facility] [address] [place] [address] * Respiratory pathogen panel (01/23/2018 5:00 AM CDT) Respiratory pathogen Negative for all pathogens [facility] DEPARTMENT OF panel tested: PATHOLOGY AND [...] Specimen Nares - Right Performing Organization Address City/[facility]/Zipcode Phone Number [facility] DEPARTMENT OF [address] [place] [address] PATHOLOGY AND GENOMIC MEDICINE * Rocio-Bedoya virus antibody test (01/23/2018 4:55 AM CDT) EBV Ab to viral capsid POSITIVE (A) Negative [facility] DEPARTMENT OF Ag, IgG PATHOLOGY AND GENOMIC MEDICINE EBV Ab to viral capsid Negative Negative [facility] DEPARTMENT OF Ag, IgM PATHOLOGY AND GENOMIC MEDICINE EBV Ab to nuclear Ag, IgG POSITIVE (A) Negative [facility] DEPARTMENT OF PATHOLOGY AND GENOMIC MEDICINE EBV Ab to early (D) Ag, Negative Negative [facility] DEPARTMENT OF IgG Comment: PATHOLOGY AND [...] Serum Performing Organization Address City/State/Zipcode Phone Number [facility] DEPARTMENT OF [address] [place] [address] PATHOLOGY AND GENOMIC MEDICINE * Cytomegalovirus Ab, IgM (01/23/2018 4:55 AM CDT) Cytomegalovirus Ab, IgM NegativeComment: Negative: CMV Negative [facility] DEPARTMENT OF IgM antibodies were not PATHOLOGY AND detected. GENOMIC MEDICINE Specimen Serum Performing Organization Address [facility] Phone Number [facility] [place] [address] PATHOLOGY AND [facility] MEDICINE * HIV 1, 2 antibody (01/23/2018 4:55 AM CDT) HIV 1, 2 antibody Non-reactive Non-reactive [facility] DEPARTMENT OF Comment: PATHOLOGY AND Starting from January 01 2016, GENOMIC MEDICINE 4th generation HIV screening and confirmation assays are in use at [facility], consistent with the CDC-recommended algorithm. [...] the testing algorithm, please refer to: http://stacks.cdc.gov/view/cdc /66694. Specimen Blood Performing Organization Address City/[facility] Phone Number [facility] [place] [place] [address] PATHOLOGY AND GENOMIC MEDICINE * MRI Brain [...] of acute infarction, hemorrhage, or mass lesion. [facility]-[id number] Procedure Note Interface, Radiology Results Incoming - [...] of acute infarction, hemorrhage, or mass lesion. [facility]-[id number] Performing Organization Address City/State/Zipcode Phone Number [facility] [address] [place] [address] * MRA Head Wo Contrast (01/22/2018 3:06 PM CDT) Narrative Performed At [facility] EXAMINATION:MRA HEAD WO CONTRAST CLINICAL HISTORY:STROKE COMPARISON:Concurrent brain MRI on 01/22/2018. TECHNIQUE: Head MRA using 3D ejop-wv-jsshtp technique with multiplanar MIP reconstruction were obtained. FINDINGS: There is normal flow signal with no significant stenosis or occlusion along bilateral intracranial ICAs, ACAs, and MCAs. The anterior communicating artery complex is unremarkable. There is normal flow signal with no significant stenosis or occlusion along bilateral vertebral arteries, basilar artery, cerebellar arteries, and safety and health manager. The vertebral arteries are codominant. The posterior communicating arteries are small and not well-visualized. There is no evidence of cerebral aneurysm in the proximal kaibab of [place] within limits of MRA technique. IMPRESSION: Unremarkable head MRA with no significant stenosis or occlusion in the proximal kaibab of [place]. [facility]-[id number] Procedure Note Interface, Radiology Results Incoming - 01/22/2018 4:14 PM CDT EXAMINATION: MRA HEAD WO CONTRAST CLINICAL HISTORY: STROKE COMPARISON: Concurrent brain MRI on 01/22/2018. TECHNIQUE: Head MRA using 3D esaq-qu-edfync technique with multiplanar MIP reconstruction were obtained. FINDINGS: There is normal flow signal with no significant stenosis or occlusion along bilateral intracranial ICAs, ACAs, and MCAs. The anterior communicating artery complex is unremarkable. There is normal flow signal with no significant stenosis or occlusion along bilateral vertebral arteries, basilar artery, cerebellar arteries, and safety and health manager. The vertebral arteries are codominant. The posterior communicating arteries are small and not well-visualized. There is no evidence of cerebral aneurysm in the proximal kaibab of [place] within limits of MRA technique. IMPRESSION: Unremarkable head MRA with no significant stenosis or occlusion in the proximal kaibab of [place]. [facility]-[id number] Performing Organization Address City/State/Zipcode Phone Number [facility] [address] [place] [address] * MRA Neck Wo Contrast (01/22/2018 2:57 PM CDT) Narrative Performed At EXAMINATION: MRA NECK WO CONTRAST [facility] CLINICAL HISTORY: STROKE COMPARISON:None TECHNIQUE: 2-D and 3-D [id number] MRA images of the cervical vessels were [...] with no significant stenosis by NASCET criteria. [facility]-[id number] Procedure Note Interface, Radiology Results Incoming - 01/22/2018 4:14 PM CDT EXAMINATION: MRA NECK WO CONTRAST CLINICAL HISTORY: STROKE COMPARISON: None TECHNIQUE: 2-D and 3-D [id number]-es-[id number] MRA images of the cervical vessels were [...] with no significant stenosis by NASCET criteria. [facility]-[id number] Performing Organization Address [facility] Phone Number [facility] [address] [place] [address] * XR Panorex (01/22/2018 1:37 PM CDT) Narrative Performed At EXAMINATION:XR PANOREX RADIANT CLINICAL HISTORY:Abscess, dental abscess and swelling COMPARISON:None. IMPRESSION: There are root canal changes involving the left mandibular first molar with small periapical lucency, cannot exclude periapical abscess. There is also questionable thin lucency in the left mandibular second and third molar regions. Recommend dedicated dental imaging for further evaluation. [facility]-[id number] Procedure Note Hm Interface, Radiology Results Incoming [...] Recommend dedicated dental imaging for further evaluation. [facility]-[id number] Performing Organization Address [facility] Phone Number [facility] [address] [place] [address] * Prothrombin mutation, factor II, by PCR (01/22/2018 11:45 AM CDT) Prothrombin gene mutation Normal Normal [facility] DEPARTMENT OF PATHOLOGY AND GENOMIC MEDICINE Prothrombin gene mutation See link below for PDF Lab [facility] DEPARTMENT OF ReportComment: Case Number: PATHOLOGY AND [id number] GENOMIC MEDICINE Specimen Blood Performing Organization Address [facility] Phone Number [facility] DEPARTMENT OF [address] [place] [address] PATHOLOGY AND GENOMIC MEDICINE * Beta-2 glycoprotein 1 antibody, IgG and IgM (01/22/2018 11:45 AM CDT) Beta-2 glycoprotein 1 <9.4 0.0 - 20.0 [facility] DEPARTMENT OF antibody, IgG Comment: PATHOLOGY AND Negative=<20.0 [facility] GENOMIC MEDICINE Positive >20.0 [facility] Beta-2 glycoprotein 1 <9.4 0.0 - 20.0 [facility] DEPARTMENT OF antibody, IgM Comment: PATHOLOGY AND Negative=<20.0 [facility] GENOMIC MEDICINE Positive >20.0 [facility] Specimen Blood Performing Organization Address City/[facility] Phone Number [facility] DEPARTMENT OF [address] [place] [address] PATHOLOGY AND GENOMIC MEDICINE * Functional protein S (01/22/2018 11:45 AM CDT) Functional protein S 113 74 - 160 % [facility] DEPARTMENT OF Comment: PATHOLOGY AND Functional Protein S GENOMIC MEDICINE performed.If result is decreased Total and Free Protein S Antigen will be performed. Specimen Blood Performing Organization Address City/[facility] Phone Number [facility] DEPARTMENT OF [address] [place] [address] PATHOLOGY AND GENOMIC MEDICINE * Functional protein C (01/22/2018 11:45 AM CDT) Functional protein C 85 70 - 165 % [facility] DEPARTMENT OF PATHOLOGY AND GENOMIC MEDICINE Specimen Blood Performing Organization Address [facility] [place] Phone Number [facility] DEPARTMENT OF [address] [place] [address] PATHOLOGY AND GENOMIC MEDICINE * Lupus anticoagulant panel (01/22/2018 11:45 AM CDT) Prothrombin time 14.4 12.0 - 15.0 sec [facility] DEPARTMENT OF PATHOLOGY AND GENOMIC MEDICINE INR 1.1 [facility] DEPARTMENT OF Comment: PATHOLOGY AND The International Normalized [facility] Ratio (INR) is a therapeutic monitoring tool for patients who are stable on oral anticoagulant therapy. An INR of 2.0-3.0 is suggested for deep vein thrombosis/pulmonary embolism. PTT 37.8 (H) 23.0 - 36.0 sec [facility] DEPARTMENT OF Comment: PATHOLOGY AND PTT therapeutic range for [facility] unfractionated heparin is 61.0-112.0 seconds which corresponds to Anti-Xa 0.3-0.7 U/ml. PTT lupus anticoagulant 38.0 27.0 - 38.0 sec [facility] DEPARTMENT OF Comment: PATHOLOGY AND Lupus anticoagulant (LA) panel [facility] consists of PT, PTT, PTT-LA, [...] diagnosis. DRVVT 41.6 29.0 - 46.0 sec [facility] DEPARTMENT OF PATHOLOGY AND GENOMIC MEDICINE Specimen Blood Performing Organization Address City/[facility] Phone Number [facility] [place] [address] PATHOLOGY AND GENOMIC MEDICINE * Cardiolipin antibodies (01/22/2018 11:45 AM CDT) Cardiolipin IgG 1 0 - 14 GPL [facility] DEPARTMENT OF Comment: PATHOLOGY AND Negative=<15 GENOMIC MEDICINE GPL Indeterminate=15-20 GPL Positive=>20 GPL Cardiolipin IgM 4 0 - 12 MPL [facility] DEPARTMENT OF Comment: PATHOLOGY AND Negative=<13 GENOMIC MEDICINE MPL Indeterminate=13-20 MPL Positive=>20 MPL Specimen Blood Performing Organization Address [facility] [place] Phone Number [facility] [place] [address] PATHOLOGY AND [facility] MEDICINE * Factor V leiden by PCR (01/22/2018 11:45 AM CDT) Factor V Leiden Normal [facility] DEPARTMENT OF PATHOLOGY AND GENOMIC MEDICINE Factor V Leiden See link below for PDF Lab [facility] DEPARTMENT OF ReportComment: Case Number: PATHOLOGY AND [id number] GENOMIC MEDICINE Specimen Blood Performing Organization Address [facility] Phone Number [facility] [place] [address] PATHOLOGY AND GENOMIC MEDICINE * Antithrombin III level (01/22/2018 11:45 AM CDT) Antithrombin III 103 80 - 130 % [facility] DEPARTMENT OF PATHOLOGY AND GENOMIC MEDICINE Specimen Blood Performing Organization Address City/[facility] Phone Number [facility] [place] [address] PATHOLOGY AND [facility] MEDICINE * Factor VIII assay (01/22/2018 11:45 AM CDT) Factor VIII activity 111 60 - 150 % [facility] DEPARTMENT OF PATHOLOGY AND GENOMIC MEDICINE Specimen Blood Performing Organization Address City/[facility] [place] [address] PATHOLOGY AND [employer] MEDICINE * C-reactive protein (01/22/2018 11:45 AM CDT) CRP 4.62 (H) 0.00 - 0.50 mg/dL [facility] DEPARTMENT OF PATHOLOGY AND GENOMIC MEDICINE Specimen Plasma specimen Performing Organization Address [facility] Phone Number [facility] DEPARTMENT [address] [address] PATHOLOGY AND GENOMIC MEDICINE * Partial thromboplastin time, activated (01/21/2018 10:00 PM CDT) PTT 34.5 23.0 - 36.0 sec [facility] DEPARTMENT OF Comment: PATHOLOGY AND PTT therapeutic range for GENOMIC MEDICINE unfractionated heparin is 61.0-112.0 seconds which corresponds to Anti-Xa 0.3-0.7 U/ml. Specimen Blood Performing Organization Address [facility] Phone Number [address] [address] PATHOLOGY AND GENOMIC MEDICINE * Prothrombin time with INR (01/21/2018 10:00 PM CDT) Prothrombin time 14.1 12.0 - 15.0 sec [facility] DEPARTMENT OF PATHOLOGY AND GENOMIC MEDICINE INR 1.1 [facility] DEPARTMENT OF Comment: PATHOLOGY AND The International Normalized GENOMIC MEDICINE Ratio (INR) is a therapeutic monitoring tool for patients who are stable on oral anticoagulant therapy. An INR of 2.0-3.0 is suggested for deep vein thrombosis/pulmonary embolism. Specimen Blood Performing Organization Address [facility] [place] Phone Number [facility] [place] [address] PATHOLOGY AND [employer] MEDICINE * XR Chest 1 Vw Portable (01/21/2018 9:58 PM CDT) Narrative Performed At Examination:XR CHEST 1 VW PORTABLE RADIANT Clinical History:TIA Comparison: None. Technique: Single frontal view of the chest is obtained. Findings: The lungs are free of infiltrate. The heart size is normal. No pleural effusion is seen. Impression: No active cardiopulmonary disease identified. [facility]-[id number] Procedure Note Interface, Radiology Results Incoming - 01/21/2018 11:32 PM CDT Examination: XR CHEST 1 VW PORTABLE Clinical History: TIA Comparison: None. Technique: Single frontal view of the chest is obtained. Findings: The lungs are free of infiltrate. The heart size is normal. No pleural effusion is seen. Impression: No active cardiopulmonary disease identified. [facility]-[id number] Performing Organization Address [facility]/[place] [address] * Blood culture, aerobic & anaerobic (01/21/2018 9:45 PM CDT) Only the most recent of 2 results within the time period is included. Blood culture isolate No growth after 5 days of [facility] DEPARTMENT OF incubation. PATHOLOGY AND Comment: GENOMIC MEDICINE Specimen Information Specimen Source: Blood Specimen Site: Arm, left Specimen Blood - Arm, left Performing Organization Address City/[facility] Phone Number [address] [address] PATHOLOGY AND GENOMIC MEDICINE * Urinalysis, automated with microscopy (01/21/2018 9:15 PM CDT) Color, UA My [facility] DEPARTMENT OF PATHOLOGY AND GENOMIC MEDICINE Appearance, UA Clear [facility] DEPARTMENT OF PATHOLOGY AND GENOMIC MEDICINE Specific gravity, UA 1.026 1.001 - 1.035 [facility] DEPARTMENT OF PATHOLOGY AND GENOMIC MEDICINE pH, UA 6.0 5.0 - 8.5 [facility] DEPARTMENT OF PATHOLOGY AND GENOMIC MEDICINE Protein, UA Negative Negative [facility] DEPARTMENT OF PATHOLOGY AND GENOMIC MEDICINE Glucose, UA Negative Negative [facility] DEPARTMENT OF PATHOLOGY AND GENOMIC MEDICINE Ketones, UA Negative Negative [facility] DEPARTMENT OF PATHOLOGY AND GENOMIC MEDICINE Bilirubin, UA Negative Negative [facility] DEPARTMENT OF PATHOLOGY AND GENOMIC MEDICINE Blood, UA Small (A) Negative [facility] DEPARTMENT OF PATHOLOGY AND GENOMIC MEDICINE Nitrite, UA Negative Negative [facility] DEPARTMENT OF PATHOLOGY AND GENOMIC MEDICINE Urobilinogen, UA 4.0 (A) <2.0 [facility] DEPARTMENT OF PATHOLOGY AND GENOMIC MEDICINE Leukocyte esterase, UA Negative Negative [facility] DEPARTMENT OF PATHOLOGY AND GENOMIC MEDICINE Epithelial cells, UA <1 /HPF [facility] DEPARTMENT OF PATHOLOGY AND GENOMIC MEDICINE WBC, UA 1 0 - 1 /HPF [facility] DEPARTMENT OF PATHOLOGY AND GENOMIC MEDICINE RBC, UA 3 0 - 5 /HPF [facility] DEPARTMENT OF PATHOLOGY AND GENOMIC MEDICINE Bacteria, UA Few None seen [facility] DEPARTMENT OF PATHOLOGY AND GENOMIC MEDICINE Yeast, UA None seen [facility] DEPARTMENT OF PATHOLOGY AND GENOMIC MEDICINE Yeast with pseudohyphae, None seen [facility] DEPARTMENT OF UA PATHOLOGY AND GENOMIC MEDICINE Specimen Urine Performing Organization Address City/[facility]/Zipcode Phone Number [address] [address] PATHOLOGY AND GENOMIC MEDICINE after 11/29/2017 Insurance Payer Benefit Subscriber ID Type Phone Address Plan / Group BCBS BCBS xxxxxxxxxxxx PPO CHOICE PPO/DONNA ALVARES PPO Advance Directives Patient has advance care planning documents on file. For more information, celestino payne contact: Fran Eden [address] [place] [address]
[2018-11-30 20:00] VITALS: BP 114/63
--- NOTE | 2018-11-30 21:00 | NUR ---
PT ARRIVED TO THE UNIT FROM ER WOO STRETCHER WITH C/O CHEST PAIN.ASSESSMENT DONE.PAIN VOICED 02/11.PT STATES THAT PAIN RADIATING TO R.ARM.NO RESP.DISTRESS.NO NAUSEA.DR DENT RETURNED THE CALL AND TOLD THAT WILL COME AND SEE IN THE MORNING.BLOOD DRAWN AND SENT TO THE LAB FOR CARDIAC MARKERS.FAMILY MEMBER AT BED SIDE.ORIENTED TO THE UNIT.BED LOCKED AND IN LOWEST POSITION.PHONE AND CALL LIGHT WITHIN REACH.INSTRUCTED TO CALL FOR ASSISTANCE NEEDED.
[2018-11-30 21:10] VITALS: BP 114/63
[2018-11-30 22:00] VITALS: BP 114/63
[2018-11-30] MEDS: MORPHINE SULFATE INJ 4 MG/ML INJ 1ML IV PRN (22:27)
[2018-11-30] MEDS: ONDANSETRON HCL INJ 2MG/ML 2ML 2 MG/ML VIAL IV PRN (22:27)
[2018-11-30 22:52] LABS: CREATINE KINASE 120 IU/L (30-200)
[2018-12-01] VITALS (8 sets, daily range): BP systolic 98–151; BP diastolic 59–82
--- NOTE | 2018-12-01 00:40 | NUR ---
PT REFUSED TO PUT NITROGLYCERINE PATCH.PT STATED THAT PATCH CAUSES ITCHING.
[2018-12-01 06:08] LABS: BASOPHILS # (AUTO) 0.1 (0.0-0.1); BASOPHILS % 0.8 % (0.0-1.0); EOSINOPHILS # (AUTO) 0.3 (0.0-0.4); EOSINOPHILS % 3.2 % (0.0-6.0); HEMATOCRIT 44.1 % (38.2-49.6); HEMOGLOBIN 15.2 g/dL (14.0-18.0); LYMPHOCYTES # (AUTO) 3.2 (1.0-3.2); LYMPHOCYTES % 31.9 % (18.0-39.1); MEAN CORPUSCULAR HEMOGLOBIN 29.3 pg (28-32); MEAN CORPUSCULAR HGB CONC 34.5 g/dL (31-35); MONOCYTES # (AUTO) 0.7 (0.2-0.8); MONOCYTES % 6.6 % (4.4-11.3); NEUTROPHILS # (AUTO) 5.7 (2.1-6.9); NEUTROPHILS % 57.2 % (38.7-80.0); PLATELET COUNT 257 x10e3/uL (140-360); RED BLOOD COUNT 5.19 x10e6/uL (4.3-5.7); RED CELL DISTRIBUTION WIDTH 12.2 % (11.7-14.4)
[2018-12-01] MEDS: ONDANSETRON HCL INJ 2MG/ML 2ML 2 MG/ML VIAL IV PRN ×3 (06:32→21:23)
[2018-12-01] MEDS: NITROGLYCERIN 2% OINT 1 GM PKT TOP SCH ×2 (06:38)
[2018-12-01] MEDS: MORPHINE SULFATE INJ 4 MG/ML INJ 1ML IV PRN ×5 (06:38→22:00)
[2018-12-01 06:45] LABS: CREATINE KINASE MB 0.3 ng/mL (0-5.0)
--- NOTE | 2018-12-01 06:56 | NUR ---
SLEPT WELL DURING NIGHT.REPORT GIVEN TO THE ONCOMING RN.WALKING ROUNDS DONE.STABLE CONDITION.
[2018-12-01 07:00] LABS: ANION GAP 12.2 mmol/L (8-16); BLOOD UREA NITROGEN 14 mg/dL (7-26); BUN/CREATININE RATIO 12 (6-25); CALCIUM 8.9 mg/dL (8.4-10.2); CARBON DIOXIDE 24 mmol/L (22-29); CHLORIDE 100 mmol/L (98-107); CHOLESTEROL 139 MD/DL (0-199); EST GLOMERULAR FILTRATION RATE > 60 ML/MIN (60-); GLUCOSE 90 mg/dL (74-118); HDL CHOLESTEROL 28 MG/DL (40-60); LDL CHOLESTEROL 70 MG/DL (60-130); POTASSIUM 4.2 mmol/L (3.5-5.1); SODIUM 132 mmol/L (136-145); TRIGLYCERIDES 203 MG/DL (0-149)
--- NOTE | 2018-12-01 07:35 | NUR ---
Rcvd patient in report this am. Patient is asleep in bed at this time. NO s/s of distress noted
--- NOTE | 2018-12-01 09:30 | NUR ---
Patient is AAOx3. Patient ambulates on his own. Lung turk clear to auscultation. Bowel sounds present x4. No edema noted. Patient c/o chest pain that radiates to the right arm. No shortness of breath noted. NO other complications noted. Right AC IV in place
[2018-12-01] MEDS: ACETAMINOPHEN 325 MG TAB PO PRN (10:16)
[2018-12-01] MEDS ORDERED: IBUPROFEN 400 MG TAB PO PRN (11:15)
[2018-12-01] MEDS: CEFAZOLIN SOD 1 GM/NS 50ML 50 ML IV SCH ×2 (11:40→17:35)
[2018-12-01] MEDS: IBUPROFEN 400 MG TAB PO PRN (14:35)
--- NOTE | 2018-12-01 14:37 | NUR ---
CASE MANAGEMENT ASSESSMENT Research Environmental Engineer to bedside to discuss plan of care with patient/family. CM/SW role and care transitions discussed. Anticipated discharge plan discussed along with duration of care. CM/SW discussed patients right to make decisions in care. CM/SW work hours given. Patient lives: with and kids Admit/Transfer: thru ED Hospital/ER visits since last admit: last admitted in January 2018 at [facility] for stroke then was transferred to [facility] for 2 months POA/Emergency contact: Duyen Saavedra [phone] Current/Previous Home Health: none PCP/Follow-up Care: Dr. Yadav; advise pt to follow up with MD within 7 days of discharge for follow up care Current/Previous DME: none Medications (referring to index hospitalization or the first time you were in the hospital) a. Were changes made in your medications when you were in the hospital on January 2018? pt states no changes b. Did you understand the changes? n/a c. Were you able to obtain your new medications right away? n/a d. Were you able to take your medications like the doctor wanted you to? n/a e. Did the hospital give you an accurate, easy to understand list of medications when you left? n/a Scale of 1-10 how comfortable does patient feel with disease management in outpatient settin Other Services: none Employment Status: employed at [employer] Areas of Concerns: CP Referral Needs: none Education Needs: medical management IMM/SHETH given and signed (if applicable): n/a Goal for discharge: home CM/SW left business card at the bedside with contact information. Name and number was also written on the patients whiteboard. Patient verbalized understanding of discussion. CM will follow-up with ongoing discharge and transition of care needs.
[2018-12-01] MEDS: NICOTINE 21 MG/EA PATCH TOP SCH (18:22)
--- NOTE | 2018-12-01 19:59 | Consultation ---
DATE OF CONSULTATION: 12/01/2018 Cardiology Consult Note REASON FOR CONSULT: Chest pain. CHIEF COMPLAINT: Chest pain. HISTORY OF PRESENT ILLNESS: The patient is a 28-year-old man, who is a current smoker. He has a history of CVA, last year admitted to [place] and was found to have a PFO. The patient was offered a PFO closure at that time, however, this was deferred as an outpatient as there was some concern about ongoing infectious issues while he was in the hospital. 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 He states the chest pain is primarily exertional, however, it does occur at rest as well. Denies any shortness of breath or diaphoresis. Pain is sharp in the middle of his chest, tender to palpation. Denies any trauma. No prior history of coronary artery disease. His grandfather had history of early CAD. He himself is not a diabetic, however, does currently smoke. REVIEW OF SYSTEMS: As above, otherwise negative. PAST MEDICAL HISTORY: 1. History of stroke. 2. PFO. PAST SURGICAL HISTORY: None. SOCIAL HISTORY: The patient is a current smoker. Does not drink or abuse drugs. FAMILY HISTORY: Grandfather had coronary artery disease starting in his 40s. No history of sudden cardiac . ALLERGIES: NO KNOWN DRUG ALLERGIES. OBJECTIVE: VITAL SIGNS: Temperature 98.9, heart rate 83, respiratory rate 18, blood pressure 114/64, and saturating 98% on room air. GENERAL: Young male, well developed, well nourished, in no acute distress. CARDIOVASCULAR: Regular rate and rhythm. No murmurs, rubs, or gallops. Palpable carotid pulses. Palpable radial pulses. No lower extremity edema or varicosities. No ulcerations. LUNGS: Clear to auscultation bilaterally. ABDOMEN: Obese, soft, nontender, and nondistended. NEUROLOGIC AND PSYCHIATRIC: Alert and oriented to person, place, and time. Normal affect. INPATIENT MEDICATIONS: Reviewed. LABORATORY DATA: Reviewed. Cardiac enzymes negative x3. IMAGING DATA: Reviewed. Chest CT showed no pulmonary embolism, subsegmental atelectasis without superimposed infection. TELEMETRY DATA: Reviewed, shows normal sinus rhythm. ASSESSMENT: 1. Chest pain. 2. History of cerebrovascular accident and patent foramen ovale. PLAN: Already ruled out for CA with serial enzymes and normal EKGs. Chest pain has atypical and typical features, given reproducibility on palpation, likely musculoskeletal. We will start on Motrin 800 mg t.i.d. to see if this helps. If continues to experience chest pain on exertion, we will consider doing a stress test. Echocardiogram is pending. His PFO does need to be closed, however, this will need to be done as an outpatient. Thank you for this consult. We will continue to follow. MD JO ANN Chun/ANTHONY /[id number]
[2018-12-02] VITALS (8 sets, daily range): BP systolic 109–121; BP diastolic 56–77
[2018-12-02] MEDS: CEFAZOLIN SOD 1 GM/NS 50ML 50 ML IV SCH ×4 (00:09→17:31)
--- NOTE | 2018-12-02 00:10 | NUR ---
MAINTAINING NPO FOR THE PROCEDURE.STABLE CONDITION.
[2018-12-02] MEDS: ONDANSETRON HCL INJ 2MG/ML 2ML 2 MG/ML VIAL IV PRN ×5 (01:23→21:14)
[2018-12-02] MEDS: MORPHINE SULFATE INJ 4 MG/ML INJ 1ML IV PRN ×6 (01:23→21:14)
--- NOTE | 2018-12-02 06:56 | NUR ---
REPORT GIVEN TO THE ONCOMING RN.WALKING ROUNDS DONE.STABLE CONDITION.
--- NOTE | 2018-12-02 07:26 | NUR ---
Rcvd patient in report this am. Patient is asleep in bed at this time. No s/s of distress noted. Patient is NPO for a possible procedure this am.
[2018-12-02] MEDS: NICOTINE 21 MG/EA PATCH TOP SCH (08:46)
--- NOTE | 2018-12-02 10:59 | NUR ---
Patient went to nuclear medicine at this time
[2018-12-02] MEDS ORDERED: ISOSORBIDE MONONITRATE 30 MG TAB CR PO ONE (12:40)
[2018-12-02] MEDS: IBUPROFEN 400 MG TAB PO PRN (12:43)
[2018-12-02] MEDS: ISOSORBIDE MONONITRATE 30 MG TAB CR PO SCH (14:48)
[2018-12-02] MEDS ORDERED: NICOTINE 21 MG/EA PATCH TOP NR (18:00)
[2018-12-03] VITALS: BP 105/62
--- NOTE | 2018-12-03 00:20 | NUR ---
PAIN VOICED @03/14.PAIN MEDICATION GIVEN.VOIDED.BED LOCKED AND IN LOWEST POSITION.PHONE AND CALL LIGHT WITHIN REACH.INSTRUCTED TO CALL FOR ASISTANCE NEEDED.ASSESSMENT DONE.NO RESP.DISTRESS. KEEP MONITOR THE PT.
[2018-12-03] MEDS: CEFAZOLIN SOD 1 GM/NS 50ML 50 ML IV SCH ×3 (00:32→12:02)
[2018-12-03] MEDS: ACETAMINOPHEN 325 MG TAB PO PRN (03:07)
[2018-12-03] MEDS: ONDANSETRON HCL INJ 2MG/ML 2ML 2 MG/ML VIAL IV PRN (03:07)
[2018-12-03] MEDS: MORPHINE SULFATE INJ 4 MG/ML INJ 1ML IV PRN ×3 (03:08→12:02)
[2018-12-03 04:00] VITALS: BP 112/59
--- NOTE | 2018-12-03 06:50 | NUR ---
Report given to the oncoming rn.walking rounds done.stable condition.
--- NOTE | 2018-12-03 07:00 | NUR ---
WALKING ROUNDS COMPLETE NO DISTRESS NOTED, UPDATED ON POC VOICED UNDERSTANDING DENIES PAIN AT THIS TIME, CALL LIGHT IN REACH WILL CONTINUE OT MONITOR
[2018-12-03 09:29] VITALS: BP 106/62
[2018-12-03] MEDS: ISOSORBIDE MONONITRATE 30 MG TAB CR PO SCH (10:27)
[2018-12-03] MEDS: NICOTINE 21 MG/EA PATCH TOP SCH (10:28)
--- NOTE | 2018-12-03 10:30 | NUR ---
ASSESSMENT COMPLETE NO DISTRESS NOTED,UPDATED ON POC VOICED UNDERSTANDING, CO PAIN TO CHEST 6/10 MEDICATED WITH IBUPROFEN PER MD REQUEST, R AC 20G NO SS OF INFILTRATION NOTED, NO OTHER CO VOICED CALL LIGHT IN REACH WILL CONTINUE TO MONITOR
[2018-12-03 10:32] VITALS: BP 106/62
[2018-12-03] MEDS: IBUPROFEN 400 MG TAB PO PRN (10:39)
--- NOTE | 2018-12-03 11:58 | Progress Note ---
DATE: 12/03/2018 Cardiology Progress Note SUBJECTIVE: No major events overnight. OBJECTIVE: VITAL SIGNS: Temperature 97.8, pulse 71, respiratory rate 14, blood pressure 106/62, saturating 92%. GENERAL: Young man, no acute distress. CARDIOVASCULAR: Regular rate and rhythm. No murmurs, rubs, or gallops. LUNGS: Clear to auscultation bilaterally. ABDOMEN: Soft, nontender, nondistended. LUNGS: Clear to auscultation bilaterally. NEURO AND PSYCH: Alert and oriented to person, place, and time. Normal affect. INPATIENT MEDICATIONS: Reviewed. LABORATORY DATA: Reviewed. IMAGING DATA: Reviewed. Nuclear stress test yesterday showed normal perfusion. ASSESSMENT: 1. Chest pain. 2. History of patent foramen ovale. 3. History of cerebrovascular accident. PLAN: Rule out for acute [place] with serial troponins. Risk stratified with nuclear stress test, which showed normal perfusion. Chest pains are likely to be of secondary to coronary artery disease, more likely musculoskeletal. Continue symptomatic treatment. The patient will follow up in clinic in two weeks to schedule outpatient closure of PFO. Thank you for this consult. We will continue to follow. MD JO ANN Chun/ANTHONY /[id number]
[2018-12-03 12:26] VITALS: BP 114/68
[2018-12-03] MEDS ORDERED: CELEBREX100 MG PO (14:13)
[2018-12-03] MEDS ORDERED: CHANTIX1 EACH (14:13)
== END 2018-12-03 14:30 | disposition home or self-care (01) ==
LOC: ER 13:55 → INTOOBSV 19:36 → ERHOLD 19:36 → MED/SURG 21:03
PROVIDERS: ADMIT Internal Medicine; ATTEND Internal Medicine
DX: R07.89 Other chest pain (principal); Z86.73 Personal history of transient ischemic attack (TIA), and cerebral infarction without residual deficits; Q21.1 Atrial septal defect; F17.210 Nicotine dependence, cigarettes, uncomplicated; I25.10 Atherosclerotic heart disease of native coronary artery without angina pectoris
CPT/HCPCS: 36415 ×2; 71045; 71260; 78452; 80048; 80053; 80061; 82550 ×2; 82553 ×2; 82948; 83880; 84484 ×2; 85025 ×2; 85610; 85730; 93005; 93017; 93306; 99284; A9502; G0378 ×4; J0690 ×3; J2270 ×4; J2405 ×4; J7030; Q9967